=== PATIENT | female | born 2005 | race Caucasian/White ===

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

== ENCOUNTER 2025-06-24 19:04 | Emergency (ER) | payer OTHER, SELFPAY ==
--- OUTSIDE RECORDS SUMMARY | 2025-06-24 19:06 | XMS_ITS | Continuity of Care Document ---
Author Organization [facility] , [facility] Address [address] [place] [address] Assessment No assessment recorded. Plan of Treatment Reminders Order Date Submit Date Provider Last Modified By Organization Details Last Modified Time Details Appointments OB SONOGRA M 30 2024 01:00P M Ultrasound [place] 3 Not available Not available Not available OB RETURN EST 2024 01:30P M MADDISON CASTILLO NP Not available Not available Not available Lab None recorde d. Referral None recorde d. Procedures None recorde d. Surgeries None recorde d. Imaging None recorde d. Medication Orders Unisom (doxyla mine) 25 mg tablet 2024 025 [id number], [address], [place], [address], 06/18/2025 12:13:07 Vitamin B-6 25 mg tablet 2024 025 [id number], [address], [place], [address], 06/18/2025 12:13:13 Prenata l 28 mg iron-80 0 mcg tablet 2024 025 [id number], [address], [place], [address], 06/18/2025 12:12:52 Patient TargetsNo targets recorded. Patient InstructionsNo instructions recorded. Reason for Referral None Reported. Results Created Date Observation Date Name Description Value Unit Range Abnormal Flag Note LastModifiedBy Organization Detail LastModifiedTime 05/09/2005/12/2025 CULTU RE, URINE , ROUTI NE culture, urine, routine SEE NOTE abnormal CULTU RE, URINE , ROUTI NE Micro Numbe r: [id number] Test Statu s: Final Speci men Sourc e: Urine Speci men Quali ty: Adequ ate Resul t: Great er than 100,0 00 CFU/m L of Esche nikos a coli E.col i ----- ----- ----- - INT CIARAN AMOX/ CLAVU LANAT E I 16 AMP/S ULBAC HUNT I 16 CEFAZ DANIAL I 4 CEFEP DUSTIN S <=0.1 2 CEFTA ZIDIM E S <=0.5 CEFTR IAXON E S <=0.2 5 CIPRO FLOXA ELIF S 0.12 GENTA MICIN S <=1 IMIPE NEM S <=0.2 5 LEVOF LOXAC IN S 0.25 MEROP ENEM S <=0.2 5 NITRO FURAN TOIN S <=16 PIP/T AZOBA CTAM S <=4 TRIME THOPR IM/GROSS LFA S <=20 S = Susce ptibl e I = Inter media te R = Resis tant NS = Not susce ptibl e SDD = Susce ptibl e Dose Depen dent * = Not Teste d NR = Not Repor imelda NN = See Thera py Comme nts Not Available [facility] [address] [place], [address], 05/12/2025 13:20:28 05/09/2005/11/2025 VAGIN ITIS PLUS STD PANEL bacterial vaginosis BV neg negati ve normal Not Available [facility] [address] [place], [address], 05/12/2025 10:59:21 05/09/20 25 05/11/2025 VAGIN ITIS PLUS STD PANEL alan species C. spp POS negati ve abnormal Not Available [facility] [address] [place], [address], 05/12/2025 10:59:21 05/09/2005/11/2025 VAGIN ITIS PLUS STD PANEL alan glabrata C. gla neg negati ve normal Not Available [facility] [address] [place], [address], 05/12/2025 10:59:21 05/09/2005/11/2025 VAGIN ITIS PLUS STD PANEL chlamydia trachomatis CT neg negati ve normal This repor t is inten ded for use in clini ant monit oring and manag ement of [facility] nts. It is not inten ded for use in medic al-le gal appli catio n. Not Available [facility] [address] [place], [address], 05/12/2025 10:59:21 05/09/2005/11/2025 VAGIN ITIS PLUS STD PANEL neisseria gonorrhoeae GC neg negati ve normal This repor t is inten ded for use in clini ant monit oring and manag ement of [facility]. It is not inten ded for use in medic al-le gal appli catio n. Not Available [facility] [address] [place], [address], 05/12/2025 10:59:21 05/09/2005/11/2025 VAGIN ITIS PLUS STD PANEL trichomonas vaginalis TRICH POS negati ve abnormal Not Available [facility] [address] [place], [address], 05/12/2025 10:59:21 05/09/2005/09/2025 urina lysis , dipst ick Leukocytes Trace Not Available [facility] [address], [address], 05/09/2025 19:25:14 05/09/2005/09/2025 urina lysis , dipst ick Nitrite positi ve Not Available [facility] [place] [address] [place] [address], [address], 05/09/2025 19:25:14 05/09/2005/09/2025 urina lysis , dipst ick Urobilinogen .2 Not Available [address], [place], [address], 05/09/2025 19:25:14 05/09/2005/09/2025 urina lysis , dipst ick Protein Trace Not Available [address], [place], [address], 05/09/2025 19:25:14 05/09/2005/09/2025 urina lysis , dipst ick pH 6.0 Not Available [address], [place], [address], 05/09/2025 19:25:14 05/09/2005/09/2025 urina lysis , dipst ick Blood Negati ve Not Available [address], [place], [address], 05/09/2025 19:25:14 05/09/2005/09/2025 urina lysis , dipst ick Specific [place] 1.020 Not Available [facility] [address], [place], [address], 05/09/2025 19:25:14 05/09/2005/09/2025 urina lysis , dipst ick Ketone Large (80) Not Available [address], [address], 05/09/2025 19:25:14 05/09/20 25 05/09/2025 urina lysis , dipst ick Bilirubin Negati ve Not Available [address], [place], [address], 05/09/2025 19:25:14 05/09/2005/09/2025 urina lysis , dipst ick Glucose Negati ve Not Available [facility] [place] [address] [facility], [place], [address], 05/09/2025 19:25:14 05/09/2005/09/2025 urina lysis , dipst ick Appearance Turbid Not Available [facility] [place] [address] [place] [address], [place], [address], 05/09/2025 19:25:14 05/09/2005/09/2025 urina lysis , dipst ick Color Dark Yellow Not Available [facility] [address] [place] [address], [place], [address], 05/09/2025 19:25:14 05/12/2005/09/2025 US, trans vagin al No observ ation record ed. [facility] [address], [place], [address], 05/12/2025 20:14:46 Result Notes None recorded. Problems Name Problem SNOMED Code Status Onset Date Resolution Date Notes Provider Name and Address Organization Details Recorded Time test positive 824166337 Active 2024 NINA BRITO [address] [place], [address] , [facility] 14:05:27 Mixed anxiety and depressiv e disorder 415545435 Active 2024 NINA BRITO [address] [place], [address] , [facility] IV 14:05:30 Bipolar I disorder 066488176 Active 2024 NICO WEIBLEY, [address], [address] , [facility] 5 14:06:08 Mild intermitt ent asthma 666507206 Active 2024 NICO MOISE, [address], [address] , [facility] 5 14:06:08 Past history of section 252012052 Active 2024 Primary C/S Manjula Enciso, [address], [address] , [facility] 5 02:48:57 Past history of pre-eclam psia 91379489305 9100 Active 2024 Baseline preE labs normal BÁRBARA [address], [address] , [facility] 5 02:50:40 68093636 Active 2024 [address], [address] , [facility] 5 02:45:34 Past history of section 991728880 Active 2024 Primary C/S Manjula Enciso, NATE [address] [place] [address], [address] , [facility] 5 02:48:57 Obese class II 49698598593 4105 Active 2024 [address], [address] , [employer] 5 02:49:11 Past history of pre-eclam psia 08460937189 9100 Active 2024 Baseline preE labs normal Manjula Enciso CNM [address] [place] [address], [address] , [employer] 5 02:50:40 Past history of premature delivery 028956089 Active 2024 34 wks Primary C/S Manjual Enciso, CNM [address] [facility], [place], [address] , [facility] [employer] IV 02:49:55 Problem Notes None recorded. Procedures Surgical History Date Name Laterality Status Provider Name and Address Organization Details Recorded Time section completed Yessenia Barros [facility] [employer] [facility] 03/14/2025 13:12:04 Imaging Results None recorded. Procedure Notes None recorded. Medical Equipment None Reported. Allergies Allergen ID Allergen Name Allergen Category Reaction Reaction Severity Criticality Documentation Date Start Date Code Code System Note Provider Name and Address Organization Details Recorded Time 908348 Product containin g penicilli n (product) medicatio n rash Not available low 02/20/20252015 89776 8001 SNOMED Jaycee Sprague cydney, [facility] [employer] [facility] 15:06:15 Medications Name Sig Start Date Stop Date Status Note LastModified by Organization Details LastModified Time terconazole 0.4 % vaginal cream Insert 1 applicato rful every day by vaginal route for 7 days. 2024 active Not Available Not Available Not Avai lable Vitamin B-6 25 mg tablet Take 1 tablet 3 times a day by oral route for 30 days. 06/18 completed Not Available Not Available Not Available metronidazo le 0.75 % (37.5 mg/5 gram) vaginal gel Insert 1 applicato rful every day by vaginal route for 5 days. 05/21 completed Not Available Not Available Not Available metronidazo le 500 mg tablet Take 1 tablet twice a day by oral route with meal(s) for 7 days. 2024 active Not Available Not Available Not Avai lable cephalexin 500 mg capsule TAKE 1 CAPSULE BY MOUTH 4 TIMES DAILY FOR 14 DAYS. 04/17 completed Not Available Not Available Not Available ondansetron 4 mg disintegrat ing tablet DISSOLVE 1 TABLET UNDER THE TONGUE EVERY 6-8 HOURS NEEDED FOR 15 DAYS 05/15 completed Not Available Not Available Not Available Unisom (doxylamine ) 25 mg tablet Take 1 tablet every day by oral route at bedtime for 30 days. 06/18 completed Not Available Not Available Not Available doxycycline hyclate 100 mg tablet TAKE 1 TABLET BY MOUTH TWICE A DAY 02/20 completed Not Available Not Available Not Available metoclopram geetha 10 mg tablet TAKE 1 TABLET 4 TIMES A DAY BY MOUTH BEFORE MEAL(S) FOR 15 DAYS. 06/18 completed Not Available Not Available Not Available progesteron e micronized 100 mg capsule TAKE 1 CAPSULE BY MOUTH EVERY DAY AT BEDTIME FOR 30 DAYS 04/17 completed Not Available Not Available Not Available escitalopra m 10 mg tablet TAKE 1 TABLET BY MOUTH EVERY DAY DIRECTED 02/20 completed Not Available Not Available Not Available escitalopra m 5 mg tablet TAKE 1 TABLET BY MOUTH EVERY DAY DIRECTED FOR 14 DAYS 02/20 completed Not Available Not Available Not Available vitamn-iron carb-folic acid-docusa te 95 mg-1 mg-50 mg capsule Take by oral route. 06/18 completed Not Available Not Available Not Available nitrofurant oin monohydrate /macrocryst als 100 mg capsule Take 1 capsule every 12 hours by oral route for 5 days. 2024 active Not Available Not Available Not Avai lable chlorhexidi ne gluconate 0.12 % mouthwash SWISH 15 ML FOR 30 SECONDS THEN SPIT. USE TWICE DAILY (MORNING AND EVENING) AFTER BRUSHING TEETH 02/20 completed Not Available Not Available Not Available progesteron e 04/17 completed Not Available Not Available Not Available 28 mg iron-800 mcg tablet Take 1 tablet every day by oral route for 90 days. 06/18 completed Not Available Not Available Not Available Vitals Date Recorded Body height Body mass index (BMI) [Percentile] Per age and sex Body mass index (BMI) Body weight Systolic And Diastolic Provider Name and Address Organization Details Last Updated DateTime 175.26 cm 96.94 % 35.6 kg/m2 596884. 76 g 128/74 mm[Hg] [facility] 17:13:45 Social History Question Answer Notes LastModified by Organizat ion Details LastModified Time Tobacco Smoking Status Never Smoker Jaycee Sprague null, [facility] 02/20/2025 15:09:05 If You Are , What Was Your Level Of Alcohol Consumption Prior To ? None Information not available 03/14/2025 Are You Blind Or Do You Have Difficulty Seeing? No [email or web address] Information not available 02/20/2025 Are You Deaf Or Do You Have Serious Difficulty Hearing? No [email or web address] Information not available 02/20/2025 What Type Of Diet Are You Following? REGULAR [email or web address] Information not available 03/14/2025 Which Illicit Or Recreational Drugs Have You Used? [email or web address] Information not available 05/15/2025 How Many Children Do You Have? 1 [email or web address] Information not available 02/20/2025 What Is Your Relationship Status? Domestic Partner [email or web address] Information not available 02/20/2025 Are You Sexually Active? Yes [email or web address] Information not available 02/20/2025 Have You Used IV Drugs? No Information not available 05/15/2025 Sex: Unknown Functional Status Question Answer Note LastModified by Organizat ion Details LastModified Time Do you use any illicit or recreational drugs? Yes Information not available 05/15/2025 Do you or have you ever used any other forms of tobacco or nicotine? No [email or web address] Information not available 02/20/2025 What is your level of alcohol consumption? None Information not available 02/20/2025 Are you currently employed? No Information not available 05/15/2025 Mental Status None recorded. Family History Nothing Reported. Medical History Condition Response High Blood Pressure Y Depression Y Anxiety Disorder Y Asthma Y Bipolar Disorder Y Gynecological History Statement/Question Response Flow Moderate Date of last HPV Date of LMP 12/24/2024 HPV Vaccine N Duration of Flow (days) 2 Most Recent Mammogram Current Control Method Age at Menarche 9 Date of Last Colonoscopy Most Recent Bone Density Date of Last Pap Smear Obstetrics History GPAL:G 4 P 0 1 2 1 Type Value Spontaneous 2 Premature 1 Living 1 Total 4 Past Encounters Encounter ID Performer Location Encounter Start Date Encounter Closed Date Diagnosis/Indication Diagnosis SNOMED-CT Code Diagnosis ICD10 Code Diagnosis IMO Codes Diagnosis Note [id number] Manjula Enciso CNM [facility] [address] [place] [address] 04/17/2025 16:42:05 04/17/2025 19:51:20 test positive 705530046 Z32.01 217306 LMP 12/24/2024Pt was seen about 3 wks ago in the ED for pelvic & abdominal pain. IUP was identified at that time.She is here for dating US and labsEDD based on US. 10 wks - 11/10/2025N OB education reviewedSA B precaution s discussedF /u in 4 wks [id number] Manjula Camille BocanegraFernie, [facility] [address] [place] [address] 05/09/2025 18:59:10 05/09/2025 20:02:04 Gestation period, 13 weeks 61795913 Z3A.13 9992713 Advised pt to f/u immediatel y if temp>101.; abdominal pain, vaginal bleeding greater than 1 pad/hr for greater than 2 hours; vaginal bleeding with or without cramping; bleeding w/clots; cramping like a period. Dysuria 38550976 R30.0 64548 Pt reports dysuria, frequency. U dip positive nitrites - Rx for nitrofuran toin sent.[facility] POC pending culture results. Acute vaginitis 74264347 N76.0 - suspected BV. - large amounts of malodorous discharge present - Metrogel rx sent - Vulvar hygiene reviewed - Additional POC pending results - Pain in female pelvis 42 1663446 O26.899 R10.20 202140 No abnormalit ies seen on US. Discussed findings w/pt.Pain most consistent with RLP and or UTI symptoms Nausea and vomiting in 8531439115 O21.9 753285 Nausea of - advised patient to keep cracker at the bedside to eat before getting out of bed in the morning, eat smaller more frequent meals during the day, and avoid mixing solids and liquids in the same meal. Eat protein snack at bedtime. Vitamin B6 4 x daily and can take 1/2 tablet of unisom during the day w/VitB6 and 1 tablet unisom w/Vit B6 at nightRx for antiemetic sent.Infor med pt if no improvemen t in N/V can come to [facility] for IV hydration. [id number] ALVIN OLIVEIRA CNM [facility] [address] [place] [address] 05/15/2025 17:00:15 05/16/2025 13:02:28 Gestation period, 14 weeks 92335898 Z3A.14 9792214 Pt is here for a CHAD appointmen t. She is taking vitamins. She has no complaints or questions. Has not felt movement yet. Denies vaginal bleeding, abdominal cramps, N/V, contractio ns, or LOF. Denies headache, vision changes, swelling of hands or face, and epigastric pain. Discussed PTL and precaution s given. There are no identifiab le risk factors for pre-term labor. Patient was counseled on purpose, process and potential outcomes of NIPT screening. We discussed benefits, limitation s and accuracy of screenings . Alternativ es including, no testing, were reviewed. Patient was given the opportunit y to ask questions, which were addressed thoroughly . After confirming understand ing, patient provided verbal consent for NIPT screening. Hyperemesi s gravidarum 79702931 O21.0 Health Concerns Section Related Observation LastModified by Organization Detai ls LastModified Time None Recorded Concern Status LastModified by Organization Details LastModified Time None Recorded Payers Encounter Date Sequence Insurance Name Policy Number Policy Ambriz Covered Member ID Ambriz Member ID Guarantor Name 05/15/2025 1 [facility] [id number] Richardson Vargas [id number] [facility] 05/15/2025 2 [place] Serenity Mal[place]k [id number] [facility] Notes Date Note Type Note Provider Name and Address Organization Details Recorded Time 05/15/2025 text/html Patient is here today for a routine OB visit. She is currently at 14.3 weeks gestation. vitamins: yes She has not felt movement.She denies any complaints of the presence of vaginal bleed, leaking fluid, abdominal cramps, nausea, vomiting, headache or visual disturbances. Patients states was prescribed prenatals but she was given the Zofran at the pharmacy. She would like some prenatals sent in. No other concerns. ALVIN OLIVEIRA CNM [address] [place], [address], [facility] [employer] 05/15/2025 17:33:35 OBGyn Episode Ob Episode Information Episode Created Date Number of Fetuses Patient Bloodtype Patient rh Status Prepregnancy Weight lbs Domestic Partner Domestic Partner Phone Father Name Pot Holder Binder Status 04/23/20 25 1 A Positive OPEN Fetus Data First Name Last Name Admitted to NICU Weight (g) Sex Living Outcome Pediatric Complications Fetus ID Race Codes Race Delivery Type [id number] Problems Problem Notes Problem Name Start Date End Date Resolution Snomed Code Not e Obese class II 04/23/2025 19138949045062 5 Past history of pre-eclampsia 04/23/2025 297727129143568 Baseline pr eE labs normal Past history of premature delivery 04/23/2025 021587019 34 wks Primary C/S Past history of section 04/23/2025 [id number] Primary C/S Marcellus Calculation Initial Marcellus Date Initial Exam Date Initial Exam Provider Initial Ultrasound Date Last Menstrual Period Date Ultra Sound Weeks Gestation 04/23/2025 04/17/2025 12/24/2024 10 Eighteen To Twenty Week Marcellus Update Ultra Sound Date Fundal Height At Umbil Quickening Date Ultra Sound Latest Weeks Gestation Final Marcellus Confirmed By Final Marcellus Confirmed Date Final Marcellus Date Ultra Sound Latest Days Gestation 0 [email or web address] 04/23/2025 11/11/19 26 0 Pre-radha Flowsheet Flowsheet Date 05/09/2025 Jarvis Score Blood Edema Fundus Height Fundus Units Glucose Ketones Leukocytes Nitrite Labor Signs Protein Cervic Dilation Cervic Effacement Cervic Station Type Weight in lbs Pre/Post Dialysis Refused With clothes 241.399764041209 BP Diastolic BP Location Tested BP Systolic BP Type 70 120 sitting Fetus Heart Rate Present A 151 Fetus Movement Comments UC visit - see A/P Flowsheet Date 05/15/2025 Jarvis Score Blood Edema Fundus Height Fundus Units Glucose Ketones Leukocytes Nitrite Labor Signs Protein Cervic Dilation Cervic Effacement Cervic Station none neg Type Weight in lbs Pre/Post Dialysis Refused Weight 241.270878285137 BP Diastolic BP Location Tested BP Systolic BP Type 74 128 sitting Fetus Heart Rate Present A 148 Fetus Movement Comments No ob concernsPt has continu ed nausea, not taking zofran r/t risk of increased risk for clubbed feet (her last baby had clubbed feet), script sent for VitB6 and Unisom. Script sent for PNVNIPT collected todayRTC in 4 weeks Flowsheet Date 06/18/2025 Jarvis Score Blood Edema Fundus Height Fundus Units Glucose Ketones Leukocytes Nitrite Labor Signs Protein Cervic Dilation Cervic Effacement Cervic Station Type Weight in lbs Pre/Post Dialysis Refused With clothes 235.920064386475 BP Diastolic BP Location Tested BP Systolic BP Type 70 120 sitting Fetus Heart Rate Present A 163 Fetus Movement Comments reports mild suprapubic cram ping. Udip +leuks, UCx sent. [place] for trich today. F/u next week for anatomy scan Menstrual History Last Menstrual Date Menses Monthly On Bcp Conception Prior Menses Frequency Hcg Plus Date Menarche Onset Age 0612/24/2024 Delivery Information Delivery Date Delivery Type Labor Anesthesia Weeks Gestation Incision Type Labor Labor Length Hrs Delivered By Post Complications Tubal Sterilization Discharge Date Comments Discharge Information Feeding Method Contraceptive Method Maternal HG B and HCT Levels
--- OUTSIDE RECORDS SUMMARY | 2025-06-24 19:06 | XMS_ITS | Continuity of Care Document ---
Author Organization [facility] Address [address] [place] [address] Assessment No assessment recorded. Plan of Treatment Reminders Order Date Submit Date Provider Last Modified By Organization Details Last Modified Time Details Appointments OB SONOG FAIZA 30 2024 01:00P [facility] 3 Not available Not available Not available OB RETUR N EST 2024 01:30P M MADDISON CSATILLO NP Not available Not available Not available Lab hemog lobin A1c, QN, blood 2024 025 [employer], [address] [place], [address], 04/19/2025 11:41:20 abo group + rh type, blood 2024 025 [employer] [facility], [address] [facility], [place], [address], 04/26/2025 11:26:05 CBC w/ auto diff 2024 025 [facility], [address] [place], [address], 04/19/2025 12:17:35 CT + NG DNA, PCR, unspe cifie d speci men 2024 025 [employer], [address] [place], [address], 04/19/2025 19:58:29 drug of abuse panel , urine 2024 025 [employer], [address] [place], [address], 04/19/2025 11:05:22 obste tric scree n + HIV, serum or blood 2024 025 [facility], [address] [place] [address], [address], 04/19/2025 12:01:59 measl es igg Ab, serum 2024 025 [facility], [address] [place], [address], 04/26/2025 11:26:04 cultu re, urine 2024 025 [facility], [address] [place], [address], 04/26/2025 11:26:05 varic marlene- gregorioste r igg Ab scree n, serum 2024 025 [facility], [address] [facility], [place], [address], 04/26/2025 11:26:03 hemog lobaga valle y armando chaudhary, blood 2024 025 [facility], [address] [facility], [place], [address], 04/26/2025 11:26:03 antib meredith scree n, serum or plasm a 2024 025 [facility], [address] [place], [address], 04/26/2025 11:26:04 CMP, serum or plasm a 2024 [address] [email or web address], [address] [place] [address], [address], 04/17/2025 19:12:05 prote in:cr eatin ine ratio , urine 2024 025 TAC[facility], [address] [place], [address], 04/19/2025 11:00:10 Referral None recor ded. Procedures None recor ded. Surgeries None recor ded. Imaging US, trans vagin al 2024 025 [facility] Not available 04/18/2025 14:13:14 Medication Orders None recor ded. Patient TargetsNo targets recorded. Patient InstructionsNo instructions recorded. Reason for Referral None Reported. Results Created Date Observation Date Name Description Value Unit Range Abnormal Flag Note LastModifiedBy Organization Detail LastModifiedTime 04/19/2004/19/2025 PROT/ CREAT - U RANDO M protein, urine 14.5 mg/dL <11.9 high Not Available [facility] [address] [place], [address], 04/19/2025 11:00:10 04/19/2004/19/2025 PROT/ CREAT - U RANDO M creatinine, urine 176 mg/dL 20 - 275 normal Not Available [facility] [address] [place], [address], 04/19/2025 11:00:10 04/19/2004/19/2025 PROT/ CREAT - U RANDO M protein/crea tinine ratio, random urine 0.082 mg/mg _crea t 0.024 - 0.184 normal Not Available [facility] [address] [place], [address], 04/19/2025 11:00:10 04/17/2004/19/2025 DRUG ABUSE PANEL 7 W/CON FIRM amphetamines Negati ve negati ve normal Not Available [facility] [address] [place], [address], 04/19/2025 11:05:22 04/17/2004/19/2025 DRUG ABUSE PANEL 7 W/CON FIRM barbiturates Negati ve negati ve normal Not Available [facility] [address] [place], [address], 04/19/2025 11:05:22 04/17/20 25 04/19/2025 DRUG ABUSE PANEL 7 W/CON FIRM benzodiazepi stella Negati ve negati ve normal Not Available [facility] [address] [place], [address], 04/19/2025 11:05:22 04/17/20 25 04/19/2025 DRUG ABUSE PANEL 7 W/CON FIRM cocaine metabolites Negati ve negati ve normal Not Available [facility] [address] [place], [address], 04/19/2025 11:05:22 04/17/20 25 04/19/2025 DRUG ABUSE PANEL 7 W/CON FIRM cannabinoids Presum ptive Positi ve negati ve abnormal Not Available [facility] [address] [place], [address], 04/19/2025 11:05:22 04/17/20 25 04/19/2025 DRUG ABUSE PANEL 7 W/CON FIRM methadone Negati ve negati ve normal Not Available [facility] [address] [place], [address], 04/19/2025 11:05:22 04/17/20 25 04/19/2025 DRUG ABUSE PANEL 7 W/CON FIRM opiates Negati ve negati ve normal Not Available [facility] [address] [place], [address], 04/19/2025 11:05:22 04/17/20 25 04/19/2025 DRUG ABUSE PANEL 7 W/CON FIRM creatinine, urine 174 mg/dL 20 - 275 normal Not Available [facility] [address] [place], [address], 04/19/2025 11:05:22 04/17/20 25 04/19/2025 HEMOG LOBIN A1C hemoglobin A1C 5.1 % <5.7 normal The refer ence range for HbA1c is indic ated in the table below . Sugge sted Diagn osis =6.5% Consi stent with diabe jarvis 5.7 6.4% Consi stent with incre ased risk for diabe jarvis (pred iabet ic) <5.7% Consi stent with the absen ce of diabe jarvis Not Available [address], [address], 04/19/2025 11:41:20 04/17/20 25 04/19/2025 OB PANEL - STD BLOOD WORK hep BS Ag Non-Re active non-re active normal Not Available [address], [address], 04/19/2025 12:01:59 04/17/20 25 04/19/2025 OB PANEL - STD BLOOD WORK hep C Ab Non-Re active non-re active normal Not Available [address], [address], 04/19/2025 12:01:59 04/17/20 25 04/19/2025 OB PANEL - STD BLOOD WORK HIV 1/2 Ag/Ab Non-Re active non-re active normal Not Available [address], [address], 04/19/2025 12:01:59 04/17/20 25 04/19/2025 OB PANEL - STD BLOOD WORK syphilis Ab Non-Re active non-re active normal Not Available [address], [address], 04/19/2025 12:01:59 04/17/20 25 04/19/2025 OB PANEL - STD BLOOD WORK rubella Ab IgG 61.8 IU/mL normal INTER PRETI VE INFOR MATIO N: Rubel la Antib meredith, IgG. < 5.0 IU/mL ..... ..... . Not consi stent with immun ity 5.0 - 9.9 IU/mL ..... . Equiv ocal: Indet ermin ate-R epeat testi ng in 10-14 days may be helpf ul. > or = 10.0 IU/mL ... Consi stent with immun ity The prese nce of Rubel la IgG antib meredith sugge st respo nse to immun izati on or prior /curr ent expos ure to the Rubel la virus . Not Available [address], [address], 04/19/2025 12:01:59 04/17/2004/19/2025 CBC (INCL UDES DIFF/ PLT) WBC 12.0 thous and/u L 4.0 - 9.8 high Not Available [address], [address], 04/19/2025 12:17:34 04/17/2004/19/2025 CBC (INCL UDES DIFF/ PLT) RBC 4.7 mamadou on/uL 3.9 - 4.9 normal Not Available [address], [address], 04/19/2025 12:17:34 04/17/20 25 04/19/2025 CBC (INCL UDES DIFF/ PLT) hemoglobin 14.8 g/dL 11.8 - 14.8 normal Not Available [address], [address], 04/19/2025 12:17:34 04/17/20 25 04/19/2025 CBC (INCL UDES DIFF/ PLT) hematocrit 45.3 % 35.5 - 44.0 high Not Available [address], [address], 04/19/2025 12:17:34 04/17/2004/19/2025 CBC (INCL UDES DIFF/ PLT) MCV 96.0 fL 82.0 - 99.0 normal Not Available [address], [address], 04/19/2025 12:17:34 04/17/20 25 04/19/2025 CBC (INCL UDES DIFF/ PLT) MCH 31.4 pg 27.2 - 32.6 normal Not Available [address], [address], 04/19/2025 12:17:34 04/17/20 25 04/19/2025 CBC (INCL UDES DIFF/ PLT) MCHC 32.7 g/dL 31.5 - 35.5 normal Not Available [address], [address], 04/19/2025 12:17:34 04/17/20 25 04/19/2025 CBC (INCL UDES DIFF/ PLT) RDW-CV 12.6 % 11.5 - 14.5 normal Not Available [address], [address], 04/19/2025 12:17:34 04/17/20 25 04/19/2025 CBC (INCL UDES DIFF/ PLT) platelet 305 thous and/u L 140 - 350 normal Not Available [address], [address], 04/19/2025 12:17:34 04/17/20 25 04/19/2025 CBC (INCL UDES DIFF/ PLT) MPV 12.5 fL 9.3 - 12.4 high Not Available [address], [address], 04/19/2025 12:17:34 04/17/20 25 04/19/2025 CBC (INCL UDES DIFF/ PLT) absolute neutrophil 8.79 thous and/u L 1.90 - 7.00 high Not Available [address], [address], 04/19/2025 12:17:34 04/17/20 25 04/19/2025 CBC (INCL UDES DIFF/ PLT) absolute lymphocyte 2.31 thous and/u L 0.70 - 4.50 normal Not Available [address], [address], 04/19/2025 12:17:34 04/17/20 25 04/19/2025 CBC (INCL UDES DIFF/ PLT) absolute monocyte 0.70 thous and/u L 0.10 - 1.30 normal Not Available [address], [address], 04/19/2025 12:17:34 04/17/20 25 04/19/2025 CBC (INCL UDES DIFF/ PLT) absolute eosinophil 0.03 thous and/u L <0.70 normal Not Available [address], [address], 04/19/2025 12:17:34 04/17/20 25 04/19/2025 CBC (INCL UDES DIFF/ PLT) absolute basophil 0.15 thous and/u L <0.20 normal Not Available [address], [address], 04/19/2025 12:17:34 04/17/20 25 04/19/2025 CBC (INCL UDES DIFF/ PLT) absolute immature granulocyte 0.02 thous and/u L <0.03 normal Not Available [address], [address], 04/19/2025 12:17:34 04/17/20 25 04/19/2025 CT/NG chlamydia trachomatis CT neg negati ve normal This repor t is inten ded for us in clini ant monit oring and manag ement of patie nts. It is not inten ded for use in medic al-le gal appli catio n. Not Available [address], [address], 04/19/2025 19:58:29 04/17/20 25 04/19/2025 CT/NG neisseria gonorrhoeae GC neg negati ve normal This repor t is inten ded for us in clini ant monit oring and manag ement of patie nts. It is not inten ded for use in medic al-le gal appli catio n. Not Available [address], [address], 04/19/2025 19:58:29 04/17/20 04/26/2025 VARIC MARLENE ZOSTE R VIRUS ANTIB MEREDITH (IGG) varicella zoster virus antibody (IgG) 1.17 S/co normal Signa l to Cut-o ff S/CO Inter preta tion ----- ---- ----- ----- ----- ----- -- <1.00 Negat manolo - Antib meredith not detec imelda > or = 1.00 Posit manolo - Antib meredith detec imelda A posit manolo resul t indic ates that the patie nt has antib meredith to VZV but does not diffe renti ate betwe en an activ e or past infec tion. The clini ant diagn osis must be inter prete d in conju nctio n with the clini ant signs and sympt oms of the patie nt. This assay relia steph measu res immun ity due to previ ous infec tion but may not be sensi tive enoug h to detec t antib odies induc ed by vacci natio n. Thus, a negat manolo resul t in a vacci nated indiv idual does not neces saril y indic ate susce ptibi lity to VZV infec tion. A more sensi tive test for vacci natio n-ind uced immun ity is Varic marlene Zoste r Virus Antib meredith Immun ity Scree n, ACIF. Not Available [address], [address], 04/26/2025 11:26:03 04/17/20 25 04/26/2025 HEMOG LOBIN OPATH Y EVALU ATION red blood cell count 4.70 mamadou on/uL 3.80-5 .10 Not Available [facility] [address] [address] [place], [address], 04/26/2025 11:26:03 04/17/20 25 04/26/2025 HEMOG LOBIN OPATH Y EVALU ATION hemoglobin 14.6 g/dL 11.7-1 5.5 Not Available [facility] [address] [place], [address], 04/26/2025 11:26:03 04/17/20 25 04/26/2025 HEMOG LOBIN OPATH Y EVALU ATION hematocrit 46.5 % 35.0-4 5.0 high Not Available [address] [address] [place], [address], 04/26/2025 11:26:03 04/17/20 25 04/26/2025 HEMOG LOBIN OPATH Y EVALU ATION MCV 98.9 fL 80.0-1 00.0 Not Available [address] [address] [place], [address], 04/26/2025 11:26:03 04/17/20 25 04/26/2025 HEMOG LOBIN OPATH Y EVALU ATION MCH 31.1 pg 27.0-3 3.0 Not Available [address] [address] [place], [address], 04/26/2025 11:26:03 04/17/20 25 04/26/2025 HEMOG LOBIN OPATH Y EVALU ATION RDW 13.4 % 11.0-1 5.0 Not Available [address] [address] [place], [address], 04/26/2025 11:26:03 04/17/20 25 04/26/2025 HEMOG LOBIN OPATH Y EVALU ATION hemoglobin A 97.4 % >96.0 Not Available [address] [address] [place], [address], 04/26/2025 11:26:03 04/17/20 25 04/26/2025 HEMOG LOBIN OPATH Y EVALU ATION hemoglobin F <1.0 % <2.0 Not Available [address] [address] [place], [address], 04/26/2025 11:26:03 04/17/20 25 04/26/2025 HEMOG LOBIN OPATH Y EVALU ATION hemoglobin A2 (quant) 2.6 % 2.0-3. 2 Not Available [facility] [address] [address] [place], [address], 04/26/2025 11:26:03 04/17/20 25 04/26/2025 HEMOG LOBIN OPATH Y EVALU ATION interpretati on Angeli l pheno type. Angeli l hemog lobin distr ibuti on, no HgS, HgC or other abnor mal hemog lobin obser ny. Not Available [facility] [address] [address], [place], [address], 04/26/2025 11:26:03 04/17/2004/26/2025 MEASL ES AB (IGG) , IMMUN E STATU S measles Ab (IgG), immune status >300.0 0 AU/mL normal AU/mL Inter preta tion ----- ----- ----- ---- <13.5 0 Not consi stent with immun ity 13.50 -16.4 9 Equiv ocal >16.4 9 Consi stent with immun ity The prese nce of measl es IgG sugge sts immun izati on or past or curre nt infec tion with measl es virus . For addit ional infor garcia kumar e refer to http: //[facility] redd crouch.Que stDia gnost ics.c om/fa q/FAQ 162 (This link is being provi ded for infor didier ware/ educa stacy l purpo ses only. ) Not Available [facility] [address] [address], [place], [address], 04/26/2025 11:26:04 04/17/2004/26/2025 ANTIB MEREDITH SCREE N, RBC W/REF L ID, TITER AND AG antibody screen, RBC w/refl id, titer and Ag NO ANTIBO DIES DETECT ED normal Refer ence range No antib odies detec imelda This assay is a scree ysabel test for the detec tion of red blood cell antib odies . The test is not to be used for pretr ansfu yamel scree ysabel or for the medic al manag ement of an alloi mmuni zed pregn carlos. Not Available [address] [address] [place], [address], 04/26/2025 11:26:04 04/17/20 25 04/26/2025 ABO GROUP AND RH TYPE ABO group A Not Available [facility] [address] [address] [place], [address], 04/26/2025 11:26:05 04/17/20 25 04/26/2025 ABO GROUP AND RH TYPE Rh type RH(D) POSITI VE For addit ional infor garcia kumar refer to http: //[facility] redd crouch.Que stDia gnost ics.c om/fa q/FAQ 111 (This link is being provi ded for infor didier ware/ educjudi huerta purpo ses only. ) Not Available [address] [address] [place], [address], 04/26/2025 11:26:05 04/17/20 25 04/26/2025 CULTU RE, URINE , ROUTI NE culture, urine, routine SEE NOTE CULTU RE, URINE , ROUTI NE Micro Numbe r: [id number] Test Statu s: Final Speci men Sourc e: Urine Speci men Quali ty: Adequ ate Resul t: Mixed genit al paco isola imelda. These super ficia l bacte mary are not indic ative of a urina ry tract infec tion. No furth er organ ism ident ifica tion is warra nted on this speci men. If clini yoon indic ated, recol lect clean -catc h, mid-s tream urine and trans marvin immed iatel y to Urine Cultu re Trans port Tube. Not Available [address] [address] [place], [address], 04/26/2025 11:26:05 04/20/20 25 04/21/2025 COMPR EHENS MANOLO METAB OLIC PANEL sodium 139 mmol/ L 136 - 145 normal Not Available [address], [address], 04/21/2025 10:59:31 04/20/2004/21/2025 COMPR EHENS MANOLO METAB OLIC PANEL potassium 3.9 mmol/ L 3.5 - 5.1 normal Not Available [address], [address], 04/21/2025 10:59:31 04/20/2004/21/2025 COMPR EHENS MANOLO METAB OLIC PANEL chloride 100 mmol/ L 98 - 107 normal Not Available [address], [address], 04/21/2025 10:59:31 04/20/2004/21/2025 COMPR EHENS MANOLO METAB OLIC PANEL glucose 85 mg/dL 74 - 106 normal Not Available [address], [address], 04/21/2025 10:59:31 04/20/2004/21/2025 COMPR EHENS MANOLO METAB OLIC PANEL carbon dioxide 25 mmol/ L 20 - 32 normal Not Available [address], [address], 04/21/2025 10:59:31 04/20/2004/21/2025 COMPR EHENS MANOLO METAB OLIC PANEL calcium 9.1 mg/dL 8.5 - 10.1 normal Not Available [address], [address], 04/21/2025 10:59:31 04/20/2004/21/2025 COMPR EHENS MANOLO METAB OLIC PANEL creatinine 0.51 mg/dL 0.60 - 1.00 low Not Available [address], [address], 04/21/2025 10:59:31 04/20/2004/21/2025 COMPR EHENS MANOLO METAB OLIC PANEL eGFR 138 mL/mi n/1.7 3m2 >60 normal The eGFR is based on the CKD-E PI 2020 equat jayjay. To calcu late the new eGFR from a previ ous Creat inine or Cysta harry C resul t, go to https ://ana helms.jose ramon rg/pr ofdionisio roal s/kdo qi/gf r_cal culat or Not Available [address], [address], 04/21/2025 10:59:31 04/20/20 25 04/21/2025 COMPR EHENS MANOLO METAB OLIC PANEL AST 14 U/L 15 - 37 low Not Available [address], [address], 04/21/2025 10:59:31 04/20/20 25 04/21/2025 COMPR EHENS MANOLO METAB OLIC PANEL ALT 27 U/L 14 - 59 normal Not Available [address], [address], 04/21/2025 10:59:31 04/20/20 25 04/21/2025 COMPR EHENS MANOLO METAB OLIC PANEL alk phos 62 U/L 46 - 116 normal Not Available [address], [address], 04/21/2025 10:59:31 04/20/20 25 04/21/2025 COMPR EHENS MANOLO METAB OLIC PANEL albumin 4.0 g/dL 3.4 - 5.0 normal Not Available [address], [address], 04/21/2025 10:59:31 04/20/2004/21/2025 COMPR EHENS MANOLO METAB OLIC PANEL protein, total 7.3 g/dL 6.4 - 8.2 normal Not Available [address], [address], 04/21/2025 10:59:31 04/20/20 04/21/2025 COMPR EHENS MANOLO METAB OLIC PANEL bilirubin, total 0.7 mg/dL 0.2 - 1.0 normal Not Available [facility] [address] [place], [address], 04/21/2025 10:59:31 04/20/20 25 04/21/2025 COMPR EHENS MANOLO METAB OLIC PANEL urea nitrogen (BUN) 6 mg/dL 7 - 18 low Not Available [facility] [address] [place], [address], 04/21/2025 10:59:31 05/12/2005/09/2025 US, trans vagin al No observ ation record ed. [email or web address] [place] [address], [place], [address], 05/12/2025 20:14:46 Result Notes None recorded. Problems Name Problem SNOMED Code Status Onset Date Resolution Date Notes Provider Name and Address Organization Details Recorded Time test positive 851129643 Active 2024 NINA BRITO [address] [place], [address] , [facility] 14:05:27 Mixed anxiety and depressiv e disorder 566923060 Active 2024 NINA BRITO [address] [place], [address] , [facility] 5 14:05:30 Bipolar I disorder 346470039 Active 2024 NINA BRITO [address] [place], [address] , [facility] 5 14:06:08 Mild intermitt ent asthma 072071649 Active 2024 NINA BRITO [address] [place], [address] , [facility] 5 14:06:08 Past history of section 065795337 Active 2024 Primary C/S Manjula Camille Enciso, NATE [address] [place], [address] , [facility] 5 02:48:57 Past history of pre-eclam psia 50194173286 9100 Active 2024 Baseline preE labs normal Manjula Camille Enciso NATE [address] [place], [address] , [email or web address] 5 02:50:40 84668516 Active [address], [address] , [facility] 5 02:45:34 Past history of section 249537733 Active 2024 Primary C/S Manjula Enciso CNM [address] [place] [address], [address] , [facility] 5 02:48:57 Obese class II 26788683551 4105 Active 2024 Manjula Enciso CNM [address] [place] [address], [address] , [facility] 5 02:49:11 Past history of pre-eclam psia 68603650668 9100 Active 2024 Baseline preE labs normal Manjulakelley Enciso CNM [address] [place] [address], [address] , [facility] 5 02:50:40 Past history of premature delivery 090297449 Active 2024 34 wks Primary C/S Manjula Enciso NATE [address] [place] [address], [address] , [facility] 5 02:49:55 Problem Notes None recorded. Procedures Surgical History Date Name Laterality Status Provider Name and Address Organization Details Recorded Time section completed Yessenia Barros PA [email or web address] 03/14/2025 13:12:04 Imaging Results None recorded. Procedure Notes None recorded. Medical Equipment None Reported. Allergies Allergen ID Allergen Name Allergen Category Reaction Reaction Severity Criticality Documentation Date Start Date Code Code System Note Provider Name and Address Organization Details Recorded Time 304560 Product containin g penicilli n (product) medicatio n rash Not available low 02/20/20252015 61102 8001 SNOMED Jaycee [facility] 15:06:15 Medications Name Sig Start Date Stop [...] Recorded Body height Body mass index (BMI) Body mass index (BMI) [Percentile] Per age and sex Body weight Systolic And Diastolic Provider Name and Address Organization Details Last Updated DateTime 04/17/2025 175.26 cm 35.9 kg/m2 97.11 % 183055. 66 g 120/60 mm[Hg] Kerry Green [facility] 17:24:00 Social History Question Answer Notes LastModified by Organizat ion Details LastModified Time Tobacco Smoking Status Never Smoker Jaycee lamas, [facility] 02/20/2025 15:09:05 If You Are , What Was Your Level Of Alcohol Consumption Prior To ? None [email or web address] Information not available 03/14/2025 Are You Blind Or Do You Have Difficulty Seeing? No Information not available 02/20/2025 Are You Deaf Or Do You Have Serious Difficulty Hearing? No Information not available 02/20/2025 What Type Of Diet Are You Following? REGULAR [email or web address] Information not available 03/14/2025 Which Illicit Or Recreational Drugs Have You Used? Katia [email or web address] Information not available 05/15/2025 How Many Children Do You Have? 1 [email or web address] Information not available 02/20/2025 What Is Your Relationship Status? Domestic Partner Information not available 02/20/2025 Are You Sexually Active? Yes [email or web address] Information not available 02/20/2025 Have You Used IV Drugs? No [email or web address] Information not available 05/15/2025 Sex: Unknown Functional Status Question Answer Note LastModified by Organizat ion Details LastModified Time Do you use any illicit or recreational drugs? Yes [email or web address] Information not available 05/15/2025 Do you or have you ever used any other forms of tobacco or nicotine? No [email or web address] Information not available 02/20/2025 What is your level of alcohol consumption? None [email or web address] Information not available 02/20/2025 Are you currently employed? No [email or web address] Information not available 05/15/2025 Mental Status None recorded. Family History Nothing Reported. Medical History Condition Response Anxiety Disorder Y High Blood Pressure Y Bipolar Disorder Y Depression Y Asthma Y Gynecological History Statement/Question Response Flow Moderate [...] ICD10 Code Diagnosis IMO Codes Diagnosis Note [id number] Manjula Enciso CNM [facility] [address] [place] [address] 04/17/2025 16:42:05 04/17/2025 19:51:20 test positive 708917571 Z32.01 563960 LMP 12/24/2024Pt was seen about 3 wks ago in the ED for pelvic & abdominal pain. IUP was identified at that time.She is here for dating US and labsEDD based on US. 10 wks - 11/10/2025N OB education reviewedSA B precaution s discussedF /u in 4 wks Health Concerns Section Related Observation LastModified by Organization Detai ls LastModified Time None Recorded Concern Status LastModified by Organization Details LastModified Time None Recorded Payers Encounter Date Sequence Insurance Name Policy Number Policy Ambriz Covered Member ID Ambriz Member ID Guarantor Name 04/17/2025 1 [facility] [id number] Richardson Vargas [id number] [facility] [place] 04/17/2025 2 [place] Serenity [place] [id number] Se[facility] [place] OBGyn Episode Ob Episode Information Episode Created Date Number of Fetuses Patient Bloodtype Patient rh Status Prepregnancy Weight lbs Domestic Partner Domestic Partner Phone Father Name [employer] 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 Status 04/23/20 25 1 A Positive OPEN Fetus Data First Name Last Name Admitted to NICU Weight (g) Sex Living Outcome Pediatric Complications Fetus ID Race Codes Race Delivery Type [id number] Problems Problem Notes Problem Name Start Date End Date Resolution Snomed Code Not e Obese class II 04/23/2025 60966683949708 5 Past history of pre-eclampsia 04/23/2025 147966318395145 Baseline pr eE labs normal Past history of premature delivery 04/23/2025 973368960 34 wks Primary C/S Past history of section 04/23/2025 724708354 Primary C/S Marcellus Calculation Initial Marcellus Date [...] Date Ultra Sound Latest Days Gestation 0 [email or web address] 04/23/2025 11/11/19 26 0 Pre-radha Flowsheet Flowsheet Date 05/09/2025 Jarvis Score Blood Edema Fundus Height Fundus Units Glucose Ketones Leukocytes Nitrite Labor Signs Protein Cervic Dilation Cervic Effacement Cervic Station Type Weight in lbs Pre/Post Dialysis Refused With clothes 241.058943428049 BP Diastolic BP Location Tested BP Systolic BP Type 70 120 sitting Fetus Heart Rate Present A 151 Fetus Movement Comments UC visit - see A/P Flowsheet Date 05/15/2025 Jarvis Score Blood Edema Fundus Height Fundus Units Glucose Ketones Leukocytes Nitrite Labor Signs Protein Cervic Dilation Cervic Effacement Cervic Station none neg Type Weight in lbs Pre/Post Dialysis Refused Weight [id number] BP Diastolic BP Location Tested BP Systolic [...] in lbs Pre/Post Dialysis Refused With clothes [id number] BP Diastolic BP Location Tested BP Systolic [...]
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
--- OUTSIDE RECORDS SUMMARY | 2025-06-24 19:06 | XMS_ITS | Data Portability ---
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 Discussed plan. [email or web address] Not available 05/28/2023 15:28:41 Plan of Treatment Reminders Order Date Submit Date Provider Last Modified By Organization Details Last Modified Time Details Appointments None record ed. Lab None record ed. Referral None record ed. Procedures None record ed. Surgeries None record ed. Imaging non-st ress test 023 05/28/20 [facility], [address], [place], [address], 3 15:48:44 non-st ress test 023 05/24/20 23 [email or web address] [facility], [address], [place], [address], 3 06:55:20 Medication Orders None record ed. Patient TargetsNo targets recorded. Patient InstructionsNo instructions recorded. Reason for Referral None Reported. Results Created Date Observation Date Name Description Value Unit Range Abnormal Flag Note LastModifiedBy Organization Detail LastModifiedTime 05/10/20 23 05/11/2023 US, obste tric, follo w-up No observ ation record ed. [facility] [address], [place], [address], 05/11/2023 12:40:12 05/10/2005/10/2023 US, obste tric, follo w-up No observ ation record ed. [email or web address] [facility] [address], [place], [address], 05/10/2023 16:11:09 05/18/2005/18/2023 US, obste tric, follo w-up No observ ation record ed. [email or web address] [facility] [address], [place], [address], 05/21/2023 15:21:41 05/24/2005/24/2023 US, obste tric, bioph ysica l profi le + non-s tress test No observ ation record ed. [facility] [address], [place], [address], 05/26/2023 10:53:43 05/24/2005/24/2023 non-s tress test No observ ation record ed. [facility] [address], [place], [address], 05/25/2023 12:02:57 05/24/20 non-s tress test No observ ation record ed. [email or web address] Not Available 05/24 17:52:18 05/24/2005/24/2023 US, obste tric, bioph ysica l profi le + non-s tress test No observ ation record ed. [facility] [address], [place], [address], 05/24/2023 18:28:24 05/28/2005/28/2023 non-s tress test No observ ation record ed. [email or web address] [facility] [address], [place], [address], 05/28/2023 15:44:31 Result Notes None recorded. Problems Name Problem SNOMED Code Status Onset Date Resolution Date Notes Provider Name and Address Organization Details Recorded Time Mixed anxiety and depressi ve disorder 663700181 Active escitalo pram 10mg Christal Smith [facility] 3 15:00:55 Maternal obesity complica ting pregnanc y, childbir th and the puerperi um, antepart um 2698342300 07 Active bmi 35- ante testing 37w Janice Hair [facility], [facility] 3 12:37:05 Mixed anxiety and depressi ve disorder 558686036 Completed escitalo pram 10mg Christal [facility] 3 15:00:55 Bilatera l acquired clubfoot 5891072686 1485258 Completed - [facility] - 02/23, CORRECTION 03/05 3pm, 9/ f/u 730a Christalmatty Smith [facility] 3 15:00:55 History of SARS-CoV -2 7831150302 85621276 Completed at 24w- on [facility]SA[facility] 3 15:00:55 History of SARS-CoV -2 7557208321 73504310 Active at 24w- on ASA, [facility] 3 15:00:55 macrosom ia suspecte d 126599387 Completed >99% (6lbs) at 32 weeks, repeat growth 36 weeks Christal [facility] 3 15:00:55 Polyhydr amnios 29498780 Completed MONICA 30c, DVP 10cm at 32 weeks, BPPs [facility] d [facility] 15:00:55 Large for gestatio n age fetus 313096420 Completed 7lbs, 4oz @ [facility] >97% for 33w5d Christal Smith [facility] 3 15:00:55 Pre-ecla mpsia 071320682 Completed elevated PCR 05/24 Christal Smith [facility] 3 15:00:55 Pregnanc y 55956162 Completed 202206/07/2023 Jannette Tanner [facility] 5 13:17:32 Talipes equinova ida 120957128 Active 2022 Yohana Jain MD [address], [place], [address], [facility] 3 22:36:01 Anemia 466395290 Active 2022 1 tab slowfe daily Christalmatty Smith [facility] 3 14:59:27 Pregnanc y 75782954 Active 2024 Jannette Tanner [facility] 5 13:17:32 Problem Notes None recorded. Procedures Surgical History Date Name Laterality Status Provider Name and Address Organization Details Recorded Time 1 procedure on ear completed [facility] 11/10/2022 19:35:54 9 tonsilectomy/a denoids completed [facility] 11/10/2022 19:35:23 8 procedure on ear completed [facility] 11/10/2022 19:35:37 Imaging Results None recorded. Procedure Notes None recorded. Medical Equipment None Reported. Allergies Allergen ID Allergen Name Allergen Category Reaction Reaction Severity Criticality Documentation Date Start Date Code Code System Note Provider Name and Address Organization Details Recorded Time Product containin g penicilli n (product) medicatio n rash Not available Not available 11/10/2022 87146 [id number] SNOMED Felicitas lamas, [facility] 19:34:56 Medications Name Sig Start Date Stop Date Status Note LastModified by Organization Details LastModified Time clindamycin HCl 300 mg capsule TAKE 1 CAPSULE BY MOUTH THREE TIMES DAILY 11/10 completed Not Available Not Available Not Available fluconazole 150 mg tablet 12/25 completed Not Available Not Available Not Available clindamycin HCl 150 mg capsule TAKE 3 CAPSULES BY MOUTH EVERY 8 HOURS FOR 7 DAYS 11/10 completed Not Available Not Available Not Available oxycodone-a cetaminophe n 5 mg-325 mg tablet TAKE 1 TABLET BY MOUTH EVERY 4 HOURS NEEDED FOR PAIN active Not Available Not Available No t Available famotidine 20 mg tablet TAKE 1 TABLET BY MOUTH EVERY DAY NEEDED FOR STOMACH ACID OR REFLUX OR HEARTBURN OR ACID REFLUX active Not Available Not Available No t Available progesteron e micronized 200 mg capsule TAKE 1 CAPSULE BY MOUTH EVERY EVENING AT BEDTIME 04/23 completed Not Available Not Available Not Available sertraline 25 mg tablet TAKE 1 TABLET BY MOUTH EVERY DAY 11/10 completed Not Available Not Available Not Available naproxen 500 mg tablet TAKE 1 TABLET BY MOUTH TWICE DAILY 11/10 completed Not Available Not Available Not Available escitalopra m 10 mg tablet TAKE 1 TABLET BY MOUTH EVERY DAY active Not Available Not Available No t Available escitalopra m 5 mg tablet TAKE 1 TABLET BY MOUTH EVERY DAY 11/10 completed Not Available Not Available Not Available nitrofurant oin monohydrate /macrocryst als 100 mg capsule TAKE 1 CAPSULE BY MOUTH EVERY 12 HOURS FOR 3 DAYS 11/10 completed Not Available Not Available Not Available active Not Available Not Avai lable Not Available Baby Aspirin active Not Available Not Available Not Available Vitals Date Recorded Body weight Provider Name an d Address Organization Details Last Updated DateTime 05/28/2023 183619.61141 g Maddie MARCUS [address], [place], [address], [facility] 05/28/2023 17:20:31 Date Recorded Body height Body mass index (BMI) [Percentile] Per age and sex Body mass index (BMI) Systolic And Diastolic Systolic And Diastolic Provider Name and Address Organization Details Last Updated DateTime 3 174.63 cm 99 % 41.5 kg/m2 165/90 mm[Hg] 162/90 mm[Hg] Maria Guadalupe Yobani [facility] 3 15:29:05 Date Recorded Body weight Systolic And Diastolic Systolic And Diastolic Provider Name and Address Organization Details Last Updated DateTime 06/07/2023 184794.91 g 151/86 mm[Hg] 145/85 mm[Hg] Christal [facility] 06/07/2023 15:14:02 Date Recorded Body height Body mass index (BMI) [Percentile] Per age and sex Body mass index (BMI) Body weight Systolic And Diastolic Systolic And Diastolic Provider Name and Address Organization Details Last Updated DateTime 3 174.63 cm 98.34 % 37.2 kg/m2 641681. 09 g 167/96 mm[Hg] 152/90 mm[Hg] Christal [facility] 3 15:55:42 Social History Question Answer Notes LastModified by Organizat ion Details LastModified Time Tobacco Smoking Status Never Smoker Felicitas lamas, [facility] 11/10/2022 19:41:51 Are You Blind Or Do You Have Difficulty Seeing? No [email or web address] Information n ot available 11/10/2022 What Is Your Level Of Caffeine Consumption? Moderate [email or web address] Information not available 11/10/2022 In The 14 Days Before Symptom Onset, Have You Had Close Contact With A Laboratory-confirm ed COVID-19 While That Case Was Ill? No [email or web address] Information n ot available 11/10/2022 In The 14 Days Before Symptom Onset, Have You Had Close Contact With A Person Who Is Under Investigation For COVID-19 While That Person Was Ill? No [email or web address] Information not available 11/10/2022 Have You Been To An Area Known To Be High Risk For COVID-19? No [email or web address] Information not available 11/10/2022 Are You Deaf Or Do You Have Serious Difficulty Hearing? No [email or web address] Information not available 11/10/2022 What Type Of Diet Are You Following? REGULAR [email or web address] Information n ot available 11/10/2022 Do You Use Your Seat Belt Or Car Seat Routinely? Yes [email or web address] Information not available 11/10/2022 Do You Have Smoke And Carbon Monoxide Detectors In Your Home? Yes [email or web address] Information not available 11/10/2022 Do You Use Sunscreen Routinely? Yes [email or web address] Information not available 11/10/2022 Has Tobacco Cessation Counseling Been Provided? No [email or web address] Information not available 11/10/2022 Do You Have Difficulty Walking Or Climbing Stairs? No [email or web address] Information not available 11/10/2022 Sex: Unknown Functional Status Question Answer Note LastModified by Organizat ion Details LastModified Time Do you use any illicit or recreational drugs? No [email or web address] Information not available 11/10/2022 Do you or have you ever used any other forms of tobacco or nicotine? No [email or web address] Information not available 11/10/2022 What is your level of alcohol consumption? None [email or web address] Information not available 11/10/2022 Are you able to walk independently without assistance or assistive devices? YESWOREST [email or web address] Information not available 11/10/2022 Are you able to care for yourself independently? Yes [email or web address] Information not available 11/10/2022 Do you have difficulty dressing, bathing, grooming, or toileting? No Information not available 11/10/2022 What is your exercise level? Occasional Information not available 11/10/2022 Mental Status Question Answer Note LastModified by Organization D etails LastModified Time Do you feel stressed (tense, restless, nervous, or anxious, or unable to sleep at night)? [id number] [email or web address] Information not available 11/10/2022 Family History Relationship Description Onset Age of this Age Resolved Age Notes LastModified by Organization Details LastModified Time Mother Anemia [email or web address] Not available 11/10/2022 19:33:18 Mother Hypertensive disorder [email or web address] Not available 11/10 19:34:04 Mother Disorder of thyroid gland [email or web address] Not available 11/10 19:34:43 Maternal Grandmother Asthma [email or web address] Not available 19:33:27 Maternal Grandmother Hypertensive disorder Not available 11/10 19:34:04 Father Hypertensive disorder [email or web address] Not available 11/10 19:34:04 Maternal Aunt Hypertensive disorder Not available 11/10 19:34:04 Maternal Aunt Cyst of ovary Not available 11/10 19:34:17 Maternal Aunt Polycystic ovary syndrome [email or web address] Not available 11/10 19:34:28 Maternal Grandfather Hypertensive disorder [email or web address] Not available 11/10 19:34:04 Paternal Grandfather Hypertensive disorder Not available 11/10 19:34:04 Paternal Grandmother Hypertensive disorder Not available 11/10 19:34:04 Medical History Condition Response Allergies (Food, seasonal, environmental ) Y Other N Breast Cancer N Drug/Latex Allergies/Reactions Y Blood Transfusion N Lung Disease N Dermatologic Disorders N Defects or Inherited Disease N Breast Problem N Gestational Diabetes N Hematologic disorders N Anesthesia Complications N History of STI N Deep Vein Thrombosis N Polycystic ovary syndrome N Anxiety Disorder Y Autoimmune disease N Arthritis N Polyps N Infertility N History of abnormal pap N Acid Reflux (GERD) N Cancer N Varicosities N Stroke N Neurologic/Epilepsy N Endometriosis N High Cholesterol N Fibromyalgia N Headaches N Kidney Disease N Heart Problems N Kidney or Bladder Problems N Thyroid Problems N GI Problems N Eating Disorder N Anemia N Art (IVF or FET) N Psychiatric Illness N Ovarian Cancer N Diabetes N Pulmonary (TB, Asthma) N Hepatitis/Liver Disease N No Past Medical History N Eczema N Urinary Tract Infection N Abuse/Domestic Violence N Asthma Y Trauma/Violence N Depression/ depression Y Heart Disease N Pre-Eclampsia N Hypertension Y Osteoporosis N Thrombophilias N Gynecological History Statement/Question Response Date of Last Mammogram Date of LMP 08/15/2022 STIs/STDs N Date of DEXA bone scan Date of Last Pap Smear Current Control Method None Desired Control Method None LMP Approximate Obstetrics History GPAL:G 3 P 0 0 1 0 Type Value Spontaneous 1 Living 0 Total 3 Past Encounters Encounter ID Performer Location Encounter Start Date Encounter Closed Date Diagnosis/Indication Diagnosis SNOMED-CT Code Diagnosis ICD10 Code Diagnosis IMO Codes Diagnosis Note [id number] Rashi Kowalski MD [facility] [address],[place] [address] 11/10/2022 11:57:09 11/10/2022 12:25:44 screening 683176317 Z36.87 [id number] [facility] [address],[place] [address] 11/10/2022 11:58:18 11/10/2022 14:53:51 test positive 596382624 Z32.01 Risk factors addressed: Tobacco Cessation, Safe Sexual Practices, environmen jean claude, work hazards, travel restrictio ns, seat belt use.Eat a health well balanced diet, avoid alcohol, tobacco, and street drugs.Enga ge in daily low impact exercise, avoid temperatur e extremes, and cat, rodent, and bird feces.Avoi d travel to areas where zika virus is a concern.Of fered cf/sma/nip t. Will draw at 12 weeks. Handouts given and discussed with patient.Ch ildbirth classes recommende d.New OB sheet given.If previous , counseling .Pt verbalizes that she understand s the importance of above instructio ns.All questions were answered.4 5 minute total visitPatie nt reminded to have annual well woman examinatio n and address preventati ve healthcare . Amenorrhea 47689391 N91. 2 Venereal d isease screening 439695013 Z11.3 [id number] Rashi Kowalski MD [facility] [address],[place] [address] 11/17/2022 15:24:26 11/17/2022 16:12:11 Spotting per vagina in 675214761 O26.859 Z3A.08 [id number] Rashi Kowalski MD [facility] [address] [address] 11/26/2022 14:53:57 11/26/2022 15:20:42 Threatened miscarriage 07416145 O20.0 Z3A.09 [id number] Rashi Kowalski MD [facility] [address],[place] [address] 12/23/2022 12:06:13 12/23/2022 12:54:50 screening 733553506 Z36.82 [id number] Rashi Kowalski MD [facility] [address],[place] [address] 12/25/2022 12:01:51 12/25/2022 13:32:37 Routine care 396386299 Z34.81 [id number] Yohana Jain MD [facility] [address],[place] [address] 01/15/2023 12:15:52 01/15/2023 23:24:30 Routine care 107031243 Z34.02 [id number] Rashi Kowalski MD [facility] [address],[place] [address] 02/18/2023 14:08:50 02/18/2023 16:03:00 screening for malformation 865857079 Z36.3 [id number] Rashi Kowalski MD [facility] [address],[place] [address] 02/18/2023 14:11:05 02/18/2023 16:29:15 Routine care 135407049 Z34.81 [id number] Yohana Jain MD [facility] [address],[place] [address] 03/26/2023 10:25:32 03/29/2023 13:46:36 Routine care 906612844 Z34.02 Talipes equinovarus 3979 20535 Q66.00 History of SARS-CoV-2 29 64803603 19427170 Z86.16 [id number] CLAUDIO GOLDEN MD [facility] [address],[place] [address] 04/12/2023 14:43:15 04/12/2023 15:19:05 Routine care 173643896 Z34.83 [id number] [facility] [address],[place] [address] 04/23/2023 16:19:50 04/23/2023 17:56:20 Routine care 951969132 Z34.93 [id number] CLAUDIO GOLDEN MD [facility] [address],[place] [address] 05/10/2023 13:55:39 05/10/2023 15:14:24 Large for gestation age fetus 245306075 O36.63X0 O99.213 O40.3XX0 O35.8XX0 Z3A.32 [id number] CLAUDIO GOLDEN MD [facility] [address],[place] [address] 05/10/2023 14:02:03 05/10/2023 15:25:15 Gestation period, 32 weeks 1906255 Z3A.32 macr osomia suspected 373496976 O36.63X0 Polyhydramnios 51058841 O40.3XX0 [id number] CLAUDIO GOLDEN MD [facility] [address],[place] [address] 05/24/2023 16:27:11 05/25/2023 10:07:49 Maternal obesity complicating , childbirth and the puerperium, antepartum 4223820923 07 O99.213 O40.3XX0 O35.8XX0 Z3A.34 [id number] CLAUDIO GOLDEN MD [facility] [address],[place] [address] 05/24/2023 16:28:23 05/25/2023 16:52:31 Gestation period, 34 weeks 09909215 Z3A.34 Polyhydramnios 80406196 O40.3XX0 Elevated blood-pressure reading without diagnosis of hypertension 755093633 R03.0 [id number] CLAUDIO GOLDEN MD [facility] [address],[place] [address] 05/24/2023 16:29:28 05/25/2023 10:07:10 Maternal obesity complicating , childbirth and the puerperium, antepartum 3167493644 07 O99.213 [id number] CLAUDIO GOLDEN MD [facility] [address],[place] [address] 05/28/2023 14:34:59 05/28/2023 15:48:43 Pre-eclampsia 226612304 O14.05 [id number] CLAUDIO GOLDEN MD [facility] [address],[place] [address] 05/28/2023 14:36:10 05/30/2023 12:11:27 Pre-eclampsia 187677160 O14.05 Mixed anxi ety and depressive disorder 089064405 F41.8 Talipes equinovarus 3979 22295 Q66.00 Maternal o besity complicating , childbirth and the puerperium, antepartum 9570631694 07 O99.213 O40.3XX0 O35.8XX0 Z3A.34 Gestation period, 35 weeks 81959339 Z3A.35 [id number] Rashi Kowalski MD [facility] [address],[place] [address] 06/07/2023 14:49:56 06/07/2023 15:38:26 Postoperative care 662933016 Z48.89 This patient is a 17-year-ol d female who presents for postop follow-up. She is 1 week postop from a delivery. Her incision is clean dry and intact. She has no complaints . Her bleeding is minimal. She denies any nausea, vomiting, fever, chills. She denies any chest pain or shortness of breath. Her baby is doing well. Her mood is good. [id number] Rashi Kowalski MD [facility] [address],[place] [address] 07/01/2023 15:43:02 07/01/2023 16:23:53 care 205561778 Z39.2 this patient is a 17-year-ol d female presents for follow-up. She does not want contracept ion. She is not bleeding. She is not had sex. Her mood is good. Her baby is good. She is breastfeed ing. She is going to restart her antidepres sants. She does have some mild symptoms of depression . She will follow-up in 2 months for well-woman exam. Health Concerns Section Related Observation LastModified by Organization Detai ls LastModified Time None Recorded Concern Status LastModified by Organization Details LastModified Time None Recorded Advance Directives Directive None Recorded Payers Insurance Date Sequence Insurance Name Policy Number Policy Ambriz Covered Member ID Ambriz Member ID Guarantor Name 01/15/2023 1 [employer] [place] - DOS ON OR AFTER 2020 (MEDICAID REPLACEMENT - HMO) Serenity Malherek [id number] Serenity Malherek 05/20/2023 PAYMENT PLAN Serenity Malherek 11/18/2022 1 [place] [facility] Serenity Malherek [id number] Serenity Malherek 12/01/2022 1 *SELF PAY* Se renity Malherek 02/19/2023 PAYMENT PLAN Serenity Malherek 07/01/2023 1 [facility] (MEDICAID HMO) [id number] Serenity Malherek [id number] Serenity Malherek 04/12/2023 PAYMENT PLAN Serenity Malherek 09/18/2023 PAYMENT PLAN Serenity Malherek Notes Date Note Type Note Provider Name and Address Organization Details Recorded Time 05/28/2023 text/html Generic HPI TemplateReported by Patient CLAUDIO GOLDEN MD [address], [place], [address], [facility] 05/28/2023 23:21:23 06/07/2023 text/html This patient is a 17-year-old female who presents for postop follow-up. She is 1 week postop from a delivery. Her incision is clean dry and intact. She has no complaints. Her bleeding is minimal. She denies any nausea, vomiting, fever, chills. She denies any chest pain or shortness of breath. Her baby is doing well. Her mood is good. Rashi Kowalski MD [address], [place], [address], [facility] 06/07/2023 15:30:13 07/01/2023 text/html VisitReported by Patient this patient is a 17-year-old female presents for follow-up. She does not want contraception. She is not bleeding. She is not had sex. Her mood is good. Her baby is good. She is . She is going to restart her antidepressants. She does have some mild symptoms of depression. She will follow-up in 2 months for well-woman exam. Rashi Kowalski MD [address], [place], [address], [facility] 07/01/2023 16:18:41 OBGyn Episode Ob Episode Information Episode Created Date Number of Fetuses Patient Bloodtype Patient rh Status Prepregnancy Weight lbs Domestic Partner Domestic Partner Phone Father Name Timekeeper Status 12/26/19 23 1 A Positive 233 CLOSED Fetus Data First Name Last Name Admitted to NICU Weight (g) Sex Living Outcome Pediatric Complications Fetus ID Race Codes Race Delivery Type Problems Problem Notes [facility]: 04/20 u/s only 230p, 315p u/s onlyBMI 34.8 Problem Name Start Date End Date Resolution Snomed Code Not e Large for gestation age fetus 703096290 7lbs, 4oz @ [facility] >97% for 33w5d macrosomia suspected 349889197 >99% (6lbs) at 32 weeks, repeat growth 36 weeks Polyhydramnios 32628455 MONICA 3 0c, DVP 10cm at 32 weeks, BPPs scheduled Pre-eclampsia 079009042 elevat ed PCR 05/24 Mixed anxiety and depressive disorder MEDICATION 243442626 escitalo pram 10mg History of SARS-CoV-2 910470497886987326 at 24w- o n ASA, growth US at [facility] Bilateral acquired clubfoot [id number] - [facility] - 02/23, CORRECTION 03/05 3pm, 9/ f/u 730a Marcellus Calculation Initial Marcellus Date Initial Exam Date Initial Exam Provider Initial Ultrasound Date Last Menstrual Period Date Ultra Sound Weeks Gestation 07/01/2023 12/25/2022 11/10/2022 6 Eighteen To Twenty Week Marcellus Update Ultra Sound Date Fundal Height At Umbil Quickening Date Ultra Sound Latest Weeks Gestation Final Marcellus Confirmed By Final Marcellus Confirmed Date Final Marcellus Date Ultra Sound Latest Days Gestation 0 [email or web address] 12/25/2022 07/01/20 23 0 Pre-radha Flowsheet Flowsheet Date 12/25/2022 Jarvis Score Blood Edema Fundus Height Fundus Units Glucose Ketones Leukocytes Nitrite Labor Signs Protein Cervic Dilation Cervic Effacement Cervic Station 13 Type Weight in lbs Pre/Post Dialysis Refused Weight 234.633177174486 BP Diastolic BP Location Tested BP Systolic BP Type 71 R arm 125 sitting Fetus Heart Rate Present A 155 Fetus Movement Comments 17-year-old 2 para 0 83688 weeks gestation presents for initial care. She has an unremarkable medical, surgical, obstetric history. She has been infected with COVID. She is given vaccine recommendations. She was not vaccinated for COVID. She will begin routine care. We discussed care great detail. Flowsheet Date 01/15/2023 Jarvis Score Blood Edema Fundus Height Fundus Units Glucose Ketones Leukocytes Nitrite Labor Signs Protein Cervic Dilation Cervic Effacement Cervic Station neg none trace Type Weight in lbs Pre/Post Dialysis Refused Weight 240.365286166613 BP Diastolic BP Location Tested BP Systolic BP Type 73 L arm 119 sitting Fetus Heart Rate Present A 140 Fetus Movement A No Comments Doing ok. States her mood is ok. May stop progesterone. Anatomy US next visit. Flowsheet Date 02/18/2023 Jarvis Score Blood Edema Fundus Height Fundus Units Glucose Ketones Leukocytes Nitrite Labor Signs Protein Cervic Dilation Cervic Effacement Cervic Station Type Weight in lbs Pre/Post Dialysis Refused BP Diastolic BP Location Tested BP Systolic BP Type Fetus Heart Rate Present Fetus Movement Comments Flowsheet Date 02/18/2023 Jarvis Score Blood Edema Fundus Height Fundus Units Glucose Ketones Leukocytes Nitrite Labor Signs Protein Cervic Dilation Cervic Effacement Cervic Station 21 Type Weight in lbs Pre/Post Dialysis Refused Weight 249.892114374039 BP Diastolic BP Location Tested BP Systolic BP Type 74 R arm 128 sitting Fetus Heart Rate Present A 145 Fetus Movement Comments possible bllateral club feet , to see MFM, no complaints, no problems Flowsheet Date 03/26/2023 Jarvis Score Blood Edema Fundus Height Fundus Units Glucose Ketones Leukocytes Nitrite Labor Signs Protein Cervic Dilation Cervic Effacement Cervic Station none 31 Type Weight in lbs Pre/Post Dialysis Refused Weight 260.500943775029 BP Diastolic BP Location Tested BP Systolic BP Type 76 120 Fetus Heart Rate Present A 125 Fetus Movement A Yes Comments CLub feet confirmed with MFM and set up with [facility]. GCT next visit, discussed. Had COVID 2 weeks ago, taking ASA, doing growth US at [facility]. Discuss Tdap and flu shot next visit. Flowsheet Date 04/12/2023 Jarvis Score Blood Edema Fundus Height Fundus Units Glucose Ketones Leukocytes Nitrite Labor Signs Protein Cervic Dilation Cervic Effacement Cervic Station 1+ Type Weight in lbs Pre/Post Dialysis Refused Weight 268.051537181693 BP Diastolic BP Location Tested BP Systolic BP Type 76 124 Fetus Heart Rate Present A 145 Fetus Movement A Yes Comments Doing well. Minimal nausea, no vomiting. Baby active. GCT completed today. Recommended tdap and flu. RTC in 2 weeks. Flowsheet Date 04/23/2023 Jarvis Score Blood Edema Fundus Height Fundus Units Glucose Ketones Leukocytes Nitrite Labor Signs Protein Cervic Dilation Cervic Effacement Cervic Station trace none 34 none trace Type Weight in lbs Pre/Post Dialysis Refused Weight 275.107739308929 BP Diastolic BP Location Tested BP Systolic BP Type 67 115 Fetus Heart Rate Present A 136 Fetus Movement A Yes Comments patient states that having s ome cramping, bleeding, discharge and nausea. will schedule testing for bmi, had bleeding with intercourse, resolved, pelvic rest until next visit, pelvic jessenia, plan maternity support belt Flowsheet Date 05/10/2023 Jarvis Score Blood Edema Fundus Height Fundus Units Glucose Ketones Leukocytes Nitrite Labor Signs Protein Cervic Dilation Cervic Effacement Cervic Station Type Weight in lbs Pre/Post Dialysis Refused BP Diastolic BP Location Tested BP Systolic BP Type Fetus Heart Rate Present Fetus Movement Comments Flowsheet Date 05/10/2023 Jarvis Score Blood Edema Fundus Height Fundus Units Glucose Ketones Leukocytes Nitrite Labor Signs Protein Cervic Dilation Cervic Effacement Cervic Station 1+ none neg Type Weight in lbs Pre/Post Dialysis Refused Weight 272.246889725039 BP Diastolic BP Location Tested BP Systolic BP Type 72 114 Fetus Heart Rate Present A 150 Fetus Movement A Yes Comments Doing well, baby moving well . no contractions, cramping, LOF, VB. Discussed findings of suspected LGA and polyhydramnios today. Discussed healthy diet, limiting high sugar and processed foods. testing scheduled. Repeat growth US at 36 weeks. Flowsheet Date 05/24/2023 Jarvis Score Blood Edema Fundus Height Fundus Units Glucose Ketones Leukocytes Nitrite Labor Signs Protein Cervic Dilation Cervic Effacement Cervic Station Type Weight in lbs Pre/Post Dialysis Refused BP Diastolic BP Location Tested BP Systolic BP Type Fetus Heart Rate Present Fetus Movement Comments Flowsheet Date 05/24/2023 Jarvis Score Blood Edema Fundus Height Fundus Units Glucose Ketones Leukocytes Nitrite Labor Signs Protein Cervic Dilation Cervic Effacement Cervic Station Type Weight in lbs Pre/Post Dialysis Refused BP Diastolic BP Location Tested BP Systolic BP Type Fetus Heart Rate Present Fetus Movement Comments Flowsheet Date 05/24/2023 Jarvis Score Blood Edema Fundus Height Fundus Units Glucose Ketones Leukocytes Nitrite Labor Signs Protein Cervic Dilation Cervic Effacement Cervic Station none 1+ Type Weight in lbs Pre/Post Dialysis Refused BP Diastolic BP Location Tested BP Systolic BP Type Fetus Heart Rate Present A 140 Fetus Movement A Yes Comments Baby moving well, no strong contractions, LOF, VB. Polyhydramnios worse today, now 34cm. testing reactive. BPP 8/8. BP elevated, 150s systolic, reports intermittent headaches and RUQ pain. Sent to [place] for BP monitoring and lab work. Discussed gHTN and preeclampsia. Flowsheet Date 05/28/2023 Jarvis Score Blood Edema Fundus Height Fundus Units Glucose Ketones Leukocytes Nitrite Labor Signs Protein Cervic Dilation Cervic Effacement Cervic Station Type Weight in lbs Pre/Post Dialysis Refused BP Diastolic BP Location Tested BP Systolic BP Type Fetus Heart Rate Present Fetus Movement Comments Flowsheet Date 05/28/2023 Jarvis Score Blood Edema Fundus Height Fundus Units Glucose Ketones Leukocytes Nitrite Labor Signs Protein Cervic Dilation Cervic Effacement Cervic Station Type Weight in lbs Pre/Post Dialysis Refused Weight 279.389188887747 BP Diastolic BP Location Tested BP Systolic BP Type 90 165 90 162 Fetus Heart Rate Present Fetus Movement Comments No contractions, LOF, VB. Go od movement. Reports headache since this morning, unrelieved with tylenol. Intermittent RUQ pain. No vision changes. BP elevated again today, to [place] for lab work and BP monitoring. If BP elevated there, will meet criteria for preE w Sf by BPs and would recommend delivery. Discussed induction methods with patient and family. Directed to [facility]. Flowsheet Date 06/07/2023 Jarvis Score Blood Edema Fundus Height Fundus Units Glucose Ketones Leukocytes Nitrite Labor Signs Protein Cervic Dilation Cervic Effacement Cervic Station Type Weight in lbs Pre/Post Dialysis Refused Weight 248.632403508918 BP Diastolic BP Location Tested BP Systolic BP Type 86 R arm 151 sitting 85 R arm 145 sitting Fetus Heart Rate Present Fetus Movement Comments Menstrual History Last Menstrual Date Menses Monthly On Bcp Conception Prior Menses Frequency Hcg Plus Date Menarche Onset Age Genetic Screening And Infection History Question Response Note Mental Retardation/Autism false Patient's Age Will Be 35 Years Or Older At Estim ated Date of Delivery false Thalassemia (Palestinian, Upper Sorbian, Mediterranean, Or Background): MCV < 80 false Neural Tube Defect (Meningomyelocele, Spina Bifi da, Or Anencephaly) false Congenital Heart Defect false Down Syndrome false Jacoby-Sachs (eg, Sabianist, Cajun, Liberian-Barron) f alse Tom Disease false Sickle Cell Disease Or Trait () false Hemophilia Or Other Blood Disorders false Muscular Dystrophy false Cystic Fibrosis false [place]'s Ch[place] false Intellectual Disability/Autism false If Yes, Was Person Tested For Fragile X? false Other Inherited Genetic Or Chromosomal Disorder false Maternal Metabolic Disorder (eg, Type 1 Diabetes , PKU) false Patient Or Baby's Father Had A Child With Defects Not Listed Above false Recurrent Loss, Or A Stillbirth false Medications (including Suppl ements, Vitamins, Herbs, OTC Drugs), Illicit/Recreational Drugs, Alcohol false If Yes, Agent(s) And Strength/Dosage false Any Other Genetic History false Live With Someone With TB Or Exposed To TB false Patient Or Partner Has History Of Genital Herpes false Rash Or Viral Illness Since Last Menstrual Perio d false History Of STD, Gonorrhea, Chlamydia, HPV, Syphi lis false Other Infection History false History of HIV false History of Hepatitis false Prior GBS-infected child false Hemoglobinopathy Or Carrier false Other Structural Defect false Recent Travel History Outside of Country false Delivery Information Delivery Date Delivery Type Labor Anesthesia Weeks Gestation Incision Type Labor Labor Length Hrs Delivered By Post Complications Tubal Sterilization Discharge Date Comments 3 35 Discharge Information Feeding Method Contraceptive Method Maternal HG B and HCT Levels Ob Episode Information Episode Created Date Number of Fetuses Patient Bloodtype Patient rh Status Prepregnancy Weight lbs Domestic Partner Domestic Partner Phone Father Name Timekeeper Status 11/11/19 23 1 CLOSED Fetus Data First Name Last Name Admitted to NICU Weight (g) Sex Living Outcome Pediatric Complications Fetus ID Race Codes Race Delivery Type , [place]ont[place] ous [id number] Marcellus Calculation Initial Marcellus Date Initial Exam Date Initial Exam Provider Initial Ultrasound Date Last Menstrual Period Date Ultra Sound Weeks Gestation 0 Eighteen To Twenty Week Marcellus Update Ultra Sound Date Fundal Height At Umbil Quickening Date Ultra Sound Latest Weeks Gestation Final Marcellus Confirmed By Final Marcellus Confirmed Date Final Marcellus Date Ultra Sound Latest Days Gestation 0 0 Menstrual History Last Menstrual Date Menses Monthly On Bcp Conception Prior Menses Frequency Hcg Plus Date Menarche Onset Age Delivery Information Delivery Date Delivery Type Labor Anesthesia Weeks Gestation Incision Type Labor Labor Length Hrs Delivered By Post Complications Tubal Sterilization Discharge Date Comments 2 Discharge Information Feeding Method Contraceptive Method Maternal HG B and HCT Levels Ob Episode Information Episode Created Date Number of Fetuses Patient Bloodtype Patient rh Status Prepregnancy Weight lbs Domestic Partner Domestic Partner Phone Father Name Timekeeper Status 02/03/20 25 1 OPEN Fetus Data First Name Last Name Admitted to NICU Weight (g) Sex Living Outcome Pediatric Complications Fetus ID Race Codes Race Delivery Type [id number] Marcellus Calculation Initial Marcellus Date Initial Exam Date Initial Exam Provider Initial Ultrasound Date Last Menstrual Period Date Ultra Sound Weeks Gestation 02/02/2025 0 Eighteen To Twenty Week Marcellus Update Ultra Sound Date Fundal Height At Umbil Quickening Date Ultra Sound Latest Weeks Gestation Final Marcellus Confirmed By Final Marcellus Confirmed Date Final Marcellus Date Ultra Sound Latest Days Gestation 0 0 Menstrual History Last Menstrual Date Menses Monthly On Bcp Conception Prior Menses Frequency Hcg Plus Date Menarche Onset Age Delivery Information Delivery Date Delivery Type Labor Anesthesia Weeks Gestation Incision Type Labor Labor Length Hrs Delivered By Post Complications Tubal Sterilization Discharge Date Comments Discharge Information Feeding Method Contraceptive Method Maternal HG B and HCT Levels
--- OUTSIDE RECORDS SUMMARY | 2025-06-24 19:06 | XMS_ITS | Continuity of Care Document ---
Author Organization [facility], [facility] [place] Address [address] [place] [id number] Assessment No assessment recorded. Plan of Treatment Reminders Order Date Submit Date Provider Last Modified By Organization Details Last Modified Time Details Appointments OB SONOGRA M 30 2024 01:00P M [facility] [place] 3 Not available Not available Not available OB RETURN EST 2024 01:30P M MADDISON CASTILLO NP Not available Not available Not available Lab bacteri al vaginos is + vaginit is panel, vaginal 2024 025 [facility], [address] [place], [address], 06/20/2025 12:41:17 urinaly sis, dipstic k 2024 025 [email or web address] [facility] [place], [address] [place] [address], [address], 06/18/2025 12:19:25 culture , urine 2024 025 [facility], [address] [facility], [place], [address], 06/19/2025 20:07:53 Referral None recorde d. Procedures None recorde d. Surgeries None recorde d. Imaging None recorde d. Medication Orders nitrofu rantoin monohyd rate/ma crocrys tals 100 mg capsule 2024 025 [id number], [address], [place], [address], 06/18/2025 12:19:45 Patient TargetsNo targets recorded. Patient InstructionsNo instructions recorded. Reason for Referral None Reported. Results Created Date Observation Date Name Description Value Unit Range Abnormal Flag Note LastModifiedBy Organization Detail LastModifiedTime 05/09/2005/12/2025 CULTU RE, URINE , ROUTI NE culture, urine, routine SEE NOTE abnormal CULTU RE, URINE , ROUTI NE Micro Numbe r: [id number] Test Statu s: Final Speci men [...] See Thera py Comme nts Not Available [facility] [address], [place], [address], 05/12/2025 13:20:28 05/09/2005/11/2025 VAGIN ITIS PLUS STD PANEL bacterial vaginosis BV neg negati ve normal Not Available [facility] [address] [place] [address], [address], 05/12/2025 10:59:21 05/09/2005/11/2025 VAGIN ITIS PLUS STD PANEL alan species C. spp POS negati ve abnormal Not Available [facility] [address] [place], [address], 05/12/2025 10:59:21 05/09/2005/11/2025 VAGIN ITIS PLUS STD PANEL alan glabrata C. gla neg negati ve normal Not Available [facility] [address] [place] [address], [address], 05/12/2025 10:59:21 05/09/2005/11/2025 VAGIN ITIS PLUS STD PANEL chlamydia trachomatis CT neg negati ve normal This repor t is inten ded for use in clini ant monit oring and manag ement of patie nts. It is not inten ded for use in medic al-le gal appli catio n. Not Available [address], [address], 05/12/2025 10:59:21 05/09/2005/11/2025 VAGIN ITIS PLUS STD PANEL neisseria gonorrhoeae GC neg negati ve normal This repor t is inten ded for use in clini ant monit oring and manag ement of patie nts. It is not inten ded for use in medic al-le gal appli catio n. Not Available [facility] [address] [place] [address], [address], 05/12/2025 10:59:21 05/09/2005/11/2025 VAGIN ITIS PLUS STD PANEL trichomonas vaginalis TRICH POS negati ve abnormal Not Available [facility] [address] [place], [address], 05/12/2025 10:59:21 05/09/2005/09/2025 urina lysis , dipst ick Leukocytes Trace Not Available [facility] [place] [address] [facility], [place], [address], 05/09/2025 19:25:14 05/09/2005/09/2025 urina lysis , dipst ick Nitrite positi ve Not Available [facility] [address], [place], [address], 05/09/2025 19:25:14 05/09/2005/09/2025 urina lysis , dipst ick Urobilinogen .2 Not Available [address], [place], [address], 05/09/2025 19:25:14 05/09/2005/09/2025 urina lysis , dipst ick Protein Trace Not Available [address], [place], [address], 05/09/2025 19:25:14 05/09/2005/09/2025 urina lysis , dipst ick pH 6.0 Not Available [address], [place], [address], 05/09/2025 19:25:14 05/09/2005/09/2025 urina lysis , dipst ick Blood Negati ve Not Available [address], [place], [address], 05/09/2025 19:25:14 05/09/2005/09/2025 urina lysis , dipst ick Specific [place] 1.020 Not Available [address], [place], [address], 05/09/2025 19:25:14 05/09/2005/09/2025 urina lysis , dipst ick Ketone Large (80) Not Available [address], [place], [address], 05/09/2025 19:25:14 05/09/20 25 05/09/2025 urina lysis , dipst ick Bilirubin Negati ve Not Available [facility] [address], [place], [address], 05/09/2025 19:25:14 05/09/20 25 05/09/2025 urina lysis , dipst ick Glucose Negati ve Not Available [facility] [address], [place], [address], 05/09/2025 19:25:14 05/09/2005/09/2025 urina lysis , dipst ick Appearance Turbid Not Available [facility] [address], [place], [address], 05/09/2025 19:25:14 05/09/2005/09/2025 urina lysis , dipst ick Color Dark Yellow Not Available [facility] [address], [place], [address], 05/09/2025 19:25:14 05/17/20 25 05/17/2025 CHROM OSOME S 13, 18, 21 + SEX CHROM OSOME AKOSUA SIS chromosomes 13, 18, 21 + sex chromosome analysis Negati ve normal See PDF for compl ete resul ts. Overa ll Resul t: Negat lay Negat lay for all order ed condi tions Clini ant Notes : * The resid ual risks provi ded repre sent the [facility] e that the pregn carlos is affec imelda with the indic ated chrom osome aneup loidy in view of a negat lay resul t. * This is a scree ysabel test; there fore, false posit lay and false negat lay resul ts can occur . No irrev ersib le decis ion shoul d be made based on these findi ngs alone . Clini ant corre latio n with ultra sound findi ngs and histo ry is indic ated. If defin itive diagn osis is manuel ed, chori onic villu s sampl ing or amnio cente sis is necramses arceo. fract ion: 9.1% - fract ion is one compo nent of the algor ithm used and is combi eligio with other quali ty metri cs to deter mine the aneup loidy scree ysabel resul t. Not Available [facility] [address], [place], [address], 05/22/2025 01:09:06 05/18/2005/18/2025 ALICIA MENTA L (CF + SMA) [871] fundamental (CF + sma) [871] Negati ve normal See PDF for compl ete resul ts. Overa ll Resul t: Negat lay No disea se-ca using mutat ions detec imelda. Not Available [facility] [address], [place], [address], 05/25/2025 14:42:51 06/18/20 25 06/19/2025 CULTU RE, URINE , ROUTI NE culture, urine, routine SEE NOTE CULTU RE, URINE , ROUTI NE Micro Numbe r: [id number] Test Statu s: Final Speci men Sourc [...] Cultu re Trans port Tube. Not Available [employer] [facility] [address], [place], [address], 06/19/2025 20:07:53 06/18/20 25 06/20/2025 VAGIN ITIS PLUS STD PANEL bacterial vaginosis BV neg negati ve normal Not Available [facility] [address] [place] [address], [address], 06/20/2025 12:41:17 06/18/20 25 06/20/2025 VAGIN ITIS PLUS STD PANEL alan species C. spp POS negati ve abnormal Not Available [address], [address], 06/20/2025 12:41:17 06/18/20 25 06/20/2025 VAGIN ITIS PLUS STD PANEL alan glabrata C. gla neg negati ve normal Not Available [address], [address], 06/20/2025 12:41:17 06/18/20 25 06/20/2025 VAGIN ITIS PLUS STD PANEL chlamydia trachomatis CT neg negati ve normal This repor t is inten ded for use in clini ant monit oring and manag ement of patie nts. It is not inten ded for use in medic al-le gal appli catio n. Not Available [address], [address], 06/20/2025 12:41:17 06/18/20 25 06/20/2025 VAGIN ITIS PLUS STD PANEL neisseria gonorrhoeae GC neg negati ve normal This repor t is inten ded for use in clini ant monit oring and manag ement of patie nts. It is not inten ded for use in medic al-le gal appli catio n. Not Available [facility] [address] [place] [address], [address], 06/20/2025 12:41:17 06/18/20 25 06/20/2025 VAGIN ITIS PLUS STD PANEL trichomonas vaginalis TRICH POS negati ve abnormal Not Available [address], [address], 06/20/2025 12:41:17 06/18/20 25 06/18/2025 urina lysis , dipst ick Leukocytes Small Not Available [facility] [place] [address], [place], [address], 06/18/2025 12:12:59 06/18/2006/18/2025 urina lysis , dipst ick Nitrite negati ve Not Available [facility] [address], [place], [address], 06/18/2025 12:12:59 06/18/2006/18/2025 urina lysis , dipst ick Urobilinogen .2 Not Available [facility] [address], [place], [address], 06/18/2025 12:12:59 06/18/2006/18/2025 urina lysis , dipst ick Protein Trace Not Available [facility] [address], [place], [address], 06/18/2025 12:12:59 06/18/2006/18/2025 urina lysis , dipst ick pH 6.0 Not Available [facility] [address], [place], [address], 06/18/2025 12:12:59 06/18/2006/18/2025 urina lysis , dipst ick Blood Negati ve Not Available [facility] [address], [place], [address], 06/18/2025 12:12:59 06/18/2006/18/2025 urina lysis , dipst ick Specific [place] 1.025 Not Available [facility] [address], [place], [address], 06/18/2025 12:12:59 06/18/2006/18/2025 urina lysis , dipst ick Ketone Negati ve Not Available [facility] [address], [place], [address], 06/18/2025 12:12:59 06/18/20 25 06/18/2025 urina lysis , dipst ick Bilirubin Negati ve Not Available [facility] [address], [place], [address], 06/18/2025 12:12:59 06/18/2006/18/2025 urina lysis , dipst ick Glucose Negati ve Not Available [facility] [address], [place], [address], 06/18/2025 12:12:59 06/18/2006/18/2025 urina lysis , dipst ick Appearance Cloudy Not Available [facility] [address], [place], [address], 06/18/2025 12:12:59 06/18/20 25 06/18/2025 urina lysis , dipst ick Color Dark Yellow Not Available [facility] [address], [address], 06/18/2025 12:12:59 05/12/2005/09/2025 US, trans vagin al No observ ation record ed. [email or web address] [place] [address], [place], [address], 05/12/2025 20:14:46 Result Notes None recorded. Problems Name Problem SNOMED Code Status Onset Date Resolution Date Notes Provider Name and Address Organization Details Recorded Time test positive 531750804 Active 2024 NINA BRITO [address] [place], [address] , [facility] 5 14:05:27 Mixed anxiety and depressiv e disorder 391768501 Active 2024 NICO MOISE [facility] [address] [place] [address], [address] , [facility] 5 14:05:30 Bipolar I disorder 621204576 Active 2024 NICO MOISE [address], [address] , [facility] 5 14:06:08 Mild intermitt ent asthma 371039537 Active 2024 NICO MOISE [address], [address] , [facility] 5 14:06:08 Past history of section 222680942 Active 2024 Primary C/S Manjula Enciso CNM [address] [place] [address], [address] , [facility] 5 02:48:57 Past history of pre-eclam psia 20777835869 9100 Active 2024 Baseline preE labs normal Manjula Enciso CNM [address] [place] [address], [address] , [facility] 5 02:50:40 58831966 Active 2024 Manjula Enciso CNM [address] [place], [address] , [facility] 5 02:45:34 Past history of section 194866154 Active 2024 Primary C/S Manjula Enciso CNM [address] [place] [address], [address] , [facility] 5 02:48:57 Obese class II 38065293489 4105 Active 2024 Manjula Enciso CNM [address] [place], [address] , [facility] 5 02:49:11 Past history of pre-eclam psia 30960709329 9100 Active 2024 Baseline preE labs normal BÁRBARA Smiley [address] [place], [address] , [facility] 5 02:50:40 Past history of premature delivery 666343612 Active 2024 34 wks Primary C/S Manjula Enciso, [facility] [address] [place], [address] , [facility] 02:49:55 Problem Notes None recorded. Procedures Surgical History Date Name Laterality Status Provider Name and Address Organization Details Recorded Time section completed Yessenia Barrazaa [facility] 03/14/2025 13:12:04 Imaging Results None recorded. Procedure Notes None recorded. Medical Equipment None Reported. Allergies Allergen ID Allergen Name Allergen Category Reaction Reaction Severity Criticality Documentation Date Start Date Code Code System Note Provider Name and Address Organization Details Recorded Time 394327 Product containin g penicilli n (product) medicatio n rash Not available low 02/20/20252015 39122 8001 SNOMED Jaycee Sprague [facility] 15:06:15 Medications Name Sig Start Date Stop [...] and Address Organization Details Last Updated DateTime 06/18/2025 175.26 cm 96.53 % 34.8 kg/m2 382537. 36 g 120/70 mm[Hg] Kerry Green [facility] 12:10:22 Social History Question Answer Notes LastModified by [employer]) Details LastModified Time Tobacco Smoking Status Never Smoker Jaycee Sprague null, [facility] 02/20/2025 15:09:05 If You Are , What Was Your Level Of Alcohol Consumption Prior To ? None [email or web address] Information not available 03/14/2025 Are You Blind Or Do You Have Difficulty Seeing? No [email or web address] Information not available 02/20/2025 Are You Deaf Or Do You Have Serious Difficulty Hearing? No [email or web address] Information not available 02/20/2025 What Type Of Diet Are You Following? REGULAR [email or web address] Information not available 03/14/2025 Which Illicit Or Recreational Drugs Have You Used? Katia Information not available 05/15/2025 How Many Children Do You Have? 1 [email or web address] Information not available 02/20/2025 What Is Your Relationship Status? Domestic Partner [email or web address] Information not available 02/20/2025 Are You Sexually Active? Yes [email or web address] Information not available 02/20/2025 Have You Used IV Drugs? No Information not available 05/15/2025 Sex: Unknown Functional Status Question Answer Note LastModified by [employer]) Details LastModified Time Do you use any illicit or recreational drugs? Yes Information not available 05/15/2025 Do you or have you ever used any other forms of tobacco or nicotine? No [email or web address] Information not available 02/20/2025 What is your level of alcohol consumption? None [email or web address] Information not available 02/20/2025 Are you currently employed? No Information not available 05/15/2025 Mental Status None recorded. Family History Nothing Reported. Medical History Condition Response Anxiety Disorder Y High Blood Pressure Y Bipolar Disorder Y Asthma Y Depression Y Gynecological History Statement/Question Response Flow Moderate [...] ICD10 Code Diagnosis IMO Codes Diagnosis Note [id number] Manjula Enciso CNM [facility] [address] [place] [address] 06/18/2025 12:02:47 06/18/2025 13:39:41 Gestation period, 19 weeks 82858898 Z3A.19 [id number] Advised pt to f/u immediatel y if temp>101.; abdominal pain, vaginal bleeding greater than 1 pad/hr for greater than 2 hours; vaginal bleeding with or without cramping; bleeding w/clots; cramping like a period. Suprapubic pain 59589463 6 R10.24 [id number] History of gynecological disorder 518415934 Z86.19 [id number] Health Concerns Section Related Observation LastModified by Organization Detai ls LastModified Time None Recorded Concern Status LastModified by Organization Details LastModified Time None Recorded Payers Encounter Date Sequence Insurance Name Policy Number Policy Ambriz Covered Member ID Ambriz Member ID Guarantor Name 06/18/2025 1 [facility] [id number] Richardson Vargas [id number] [facility] Notes Date Note Type Note Provider Name and Address Organization Details Recorded Time 06/18/2025 text/html Patient is here today for a routine OB visit. She is currently at 19.2 weeks gestation. vitamins: yes She has felt movement. She denies any complaints of the presence of vaginal bleed, leaking fluid, abdominal cramps, nausea, vomiting, headache or visual disturbances.Laura ent c/o light cramping Manjula Enciso CNM [address] [place], [address], [facility] [email or web address] 06/18/2025 12:27:07 OBGyn Episode Ob Episode Information Episode Created Date Number of Fetuses Patient Bloodtype Patient rh Status Prepregnancy Weight lbs Domestic Partner Domestic Partner Phone Father Name Garment Turner Status 04/23/20 25 1 A Positive OPEN Fetus Data First Name Last Name Admitted to NICU Weight (g) Sex Living Outcome Pediatric Complications Fetus ID Race Codes Race Delivery Type [id number] Problems Problem Notes Problem Name Start Date End Date Resolution Snomed Code Not e Obese class II 04/23/2025 41331634199600 5 Past history of pre-eclampsia 04/23/2025 726536101041913 Baseline pr eE labs normal Past history of premature delivery 04/23/2025 544684913 34 wks Primary C/S Past history of section 04/23/2025 318771538 Primary C/S Marcellus Calculation Initial Marcellus Date [...] Date Ultra Sound Latest Days Gestation 0 [email or web address] 04/23/2025 11/11/19 26 0 Pre-radha Flowsheet Flowsheet Date 05/09/2025 Jarvis Score Blood Edema Fundus Height Fundus Units Glucose Ketones Leukocytes Nitrite Labor Signs Protein Cervic Dilation Cervic Effacement Cervic Station Type Weight in lbs Pre/Post Dialysis Refused With clothes 241.286689876361 BP Diastolic BP Location Tested BP Systolic BP Type 70 120 sitting Fetus Heart Rate Present A 151 Fetus Movement Comments UC visit - see A/P Flowsheet Date 05/15/2025 Jarvis Score Blood Edema Fundus Height Fundus Units Glucose Ketones Leukocytes Nitrite Labor Signs Protein Cervic Dilation Cervic Effacement Cervic Station none neg Type Weight in lbs Pre/Post Dialysis Refused Weight 241.298364081557 BP Diastolic BP Location Tested BP Systolic [...] in lbs Pre/Post Dialysis Refused With clothes 235.504235407582 BP Diastolic BP Location Tested BP Systolic [...]
--- OUTSIDE RECORDS SUMMARY | 2025-06-24 19:06 | XMS_ITS | Continuity of Care Document ---
Author Organization [facility] Address [address] [place] [phone] Assessment No assessment recorded. Plan of Treatment Reminders Order Date Submit Date Provider Last Modified By Organization Details Last Modified Time Details Appointments OB SONOGRA M 30 2024 01:00P M [facility] [place] 3 Not available Not available Not available OB RETURN EST 2024 01:30P M MADDISON CASTILLO, HISTOLOGY TECHNICIAN Not available Not available Not available Lab urinaly sis, dipstic k 2024 025 [facility], [address] [place] [address], [place], [address], 05/09/2025 19:36:23 culture , urine 2024 025 [facility], [address] [facility], [place], [address], 05/11/2025 20:10:50 bacteri al vaginos is + vaginit is panel, vaginal 2024 025 TACO [facility] Navin, [address] [place], [address], 05/12/2025 10:59:21 Referral None recorde d. Procedures None recorde d. Surgeries None recorde d. Imaging US, transva ginal 2024 025 TACO Not available 05/12/2025 16:00:31 Medication Orders nitrofu rantoin monohyd rate/ma crocrys tals 100 mg capsule 2024 [id number], [address], [place], [address], 05/23/2025 05:02:50 ondanse elaine 4 mg disinte grating tablet 2024 [id number], [address], [place], [address], 05/15/2025 17:14:26 metoclo pramide 10 mg tablet 2024 025 [id number], [address] , [place], [address], 06/18/2025 12:12:48 metroni dazole 0.75 % (37.5 mg/5 gram) vaginal gel 2024 025 [id number], [address] , [place], [address], 05/21/2025 05:01:36 Patient TargetsNo targets recorded. Patient InstructionsNo instructions recorded. Reason for Referral None Reported. Results Created Date Observation Date Name Description Value Unit Range Abnormal Flag Note LastModifiedBy Organization Detail LastModifiedTime 05/09/2005/12/2025 CULTU RE, URINE , ROUTI NE culture, urine, routine SEE NOTE abnormal CULTU RE, URINE , ROUTI NE Micro Numbe r: [id number] Test Statu s: Final Speci men [...] See Thera py Comme nts Not Available [facility] [address] [place], [address], 05/12/2025 13:20:28 05/09/2005/11/2025 VAGIN ITIS PLUS STD PANEL bacterial vaginosis BV neg negati ve normal Not Available [address], [address], 05/12/2025 10:59:21 05/09/2005/11/2025 VAGIN ITIS PLUS STD PANEL alan species C. spp POS negati ve abnormal Not Available [facility] Navin [address] [place] [address], [address], 05/12/2025 10:59:21 05/09/2005/11/2025 VAGIN ITIS PLUS STD PANEL alan glabrata C. gla neg negati ve normal Not Available Hedrick Navin [address] [place] [address], [address], 05/12/2025 10:59:21 05/09/2005/11/2025 VAGIN ITIS PLUS STD PANEL chlamydia trachomatis CT neg negati ve normal This repor t is inten ded for use in clini ant monit oring and manag ement of patie nts. It is not inten ded for use in medic al-le gal appli catio n. Not Available Hedrick Navin [address] [place], [address], 05/12/2025 10:59:21 10/22/20 25 05/11/2025 VAGIN ITIS PLUS STD PANEL neisseria gonorrhoeae GC neg negati ve normal This repor t is inten ded for use in clini ant monit oring and manag ement of shiv salgado. It is not inten ded for use in medic al-le gal appli catio n. Not Available Hedrick Navin [address] [place], [address], 05/12/2025 10:59:21 05/09/20 25 05/11/2025 VAGIN ITIS PLUS STD PANEL trichomonas vaginalis TRICH POS negati ve abnormal Not Available Hedrick Navin [address] [place], [address], 05/12/2025 10:59:21 05/09/2005/09/2025 urina lysis , dipst ick Leukocytes Trace Not Available [facility] [address], [address], 05/09/2025 19:25:14 05/09/2005/09/2025 urina lysis , dipst ick Nitrite positi ve Not Available [facility] [address], [address], 05/09/2025 19:25:14 05/09/2005/09/2025 urina lysis , dipst ick Urobilinogen .2 Not Available [facility] [address], [address], 05/09/2025 19:25:14 05/09/2005/09/2025 urina lysis , dipst ick Protein Trace Not Available [address], [address], 05/09/2025 19:25:14 05/09/2005/09/2025 urina lysis , dipst ick pH 6.0 Not Available [facility] [address], [place], [address], 05/09/2025 19:25:14 05/09/2005/09/2025 urina lysis , dipst ick Blood Negati ve Not Available [facility] [address], [place], [address], 05/09/2025 19:25:14 05/09/2005/09/2025 urina lysis , dipst ick Specific [place] 1.020 Not Available [address], [place], [address], 05/09/2025 19:25:14 05/09/2005/09/2025 urina lysis , dipst ick Ketone Large (80) Not Available [address], [place], [address], 05/09/2025 19:25:14 05/09/2005/09/2025 urina lysis , dipst ick Bilirubin Negati ve Not Available [address], [place], [address], 05/09/2025 19:25:14 05/09/2005/09/2025 urina lysis , dipst ick Glucose Negati ve Not Available [address], [place], [address], 05/09/2025 19:25:14 05/09/2005/09/2025 urina lysis , dipst ick Appearance Turbid Not Available [facility] [address], [place], [address], 05/09/2025 19:25:14 05/09/2005/09/2025 urina lysis , dipst ick Color Dark Yellow Not Available [facility] [place] [address] [place], [address], 05/09/2025 19:25:14 05/12/2005/09/2025 US, trans vagin al No observ ation record ed. [email or web address] [place] [address], [place], [address], 05/12/2025 20:14:46 Result Notes None recorded. Problems Name Problem SNOMED Code Status Onset Date Resolution Date Notes Provider Name and Address Organization Details Recorded Time test positive 288325910 Active 2024 NINA BRITO [facility] [place], [address] , [facility] 5 14:05:27 Mixed anxiety and depressiv e disorder 543131149 Active 2024 NINA BRITO [facility] [place], [address] , [facility] 5 14:05:30 Bipolar I disorder 694709020 Active 2024 NINA BRITO [facility] [place], [address] , [facility] 5 14:06:08 Mild intermitt ent asthma 390277141 Active 2024 NINA BRITO [address] [place] [address], [address] , [facility] 5 14:06:08 Past history of section 150631493 Active 2024 Primary C/S Manjula Enciso CNM [address] [place], [address] , [facility] 5 02:48:57 Past history of pre-eclam psia 58737110706 9100 Active 2024 Baseline preE labs normal Manjula Enciso CNM [address] [place], [address] , [facility] 5 02:50:40 70217280 Active 2024 aMnjula Enciso CNM [address] [place], [address] , [facility] 5 02:45:34 Past history of section 715923826 Active 2024 Primary C/S Manjula Enciso, BÁRBARA [address] [place] [address], [address] , [facility] 5 02:48:57 Obese class II 67934632228 4105 Active [address], [address] , [facility] 5 02:49:11 Past history of pre-eclam psia 04453496172 9100 Active 2024 Baseline preE labs normal BÁRBARA [address], [address] , [facility] 5 02:50:40 Past history of premature delivery 340106975 Active 2024 34 wks Primary C/S BÁRBARA [address], [address] , [facility] IV 5 02:49:55 Problem Notes None recorded. Procedures Surgical History Date Name Laterality Status Provider Name and Address Organization Details Recorded Time section completed Yessenia Barros [facility] 03/14/2025 13:12:04 Imaging Results None recorded. Procedure Notes None recorded. Medical Equipment None Reported. Allergies Allergen ID Allergen Name Allergen Category Reaction Reaction Severity Criticality Documentation Date Start Date Code Code System Note Provider Name and Address Organization Details Recorded Time 974257 Product containin g penicilli n (product) medicatio n rash Not available low 02/20/20252015 55909 8001 SNOMED Jaycee Sprague [facility], [facility] 15:06:15 Medications Name Sig Start Date Stop [...] and Address Organization Details Last Updated DateTime 05/09/2025 175.26 cm 96.98 % 35.7 kg/m2 714214. 64 g 120/70 mm[Hg] Kerry Green [facility] 19:24:08 Social History Question Answer Notes LastModified by Organizat ion Details LastModified Time Tobacco Smoking Status Never Smoker Jaycee Sprague null, [facility] 02/20/2025 15:09:05 If You Are , What Was Your Level Of Alcohol Consumption Prior To ? None Information not available 03/14/2025 Are You Blind Or Do You Have Difficulty Seeing? No [email or web address] Information not available 02/20/2025 Are You Deaf Or Do You Have Serious Difficulty Hearing? No Information not available 02/20/2025 What Type Of Diet Are You Following? REGULAR [email or web address] Information not available 03/14/2025 Which Illicit Or Recreational Drugs Have You Used? Katia hess Information not available 05/15/2025 How Many Children Do You Have? 1 [email or web address] Information not available 02/20/2025 What Is Your Relationship Status? Domestic Partner [email or web address] Information not available 02/20/2025 Are You Sexually Active? Yes [email or web address] Information not available 02/20/2025 Have You Used IV Drugs? No [email or web address] Information not available 05/15/2025 Sex: Unknown Functional Status Question Answer Note LastModified by Organizat ion Details LastModified Time Do you use any illicit or recreational drugs? Yes [email or web address] Information not available 05/15/2025 Do you or have you ever used any other forms of tobacco or nicotine? No [email or web address] Information not available 02/20/2025 What is your [...] ICD10 Code Diagnosis IMO Codes Diagnosis Note [id number] Manjula Enciso CNM [facility] [place] [address] [place] [address] 04/17/2025 16:42:05 04/17/2025 19:51:20 test positive 465668374 Z32.01 247215 LMP 12/24/2024Pt was seen about 3 wks ago in the ED for pelvic & abdominal pain. IUP was identified at that time.She is here for dating US and labsEDD based on US. 10 wks - 11/10/2025N OB education reviewedSA B precaution s discussedF /u in 4 wks [id number] Manjula Enciso CNM [facility] [place] [address] [place] [address] 05/09/2025 18:59:10 05/09/2025 20:02:04 Gestation period, 13 weeks 73502017 Z3A.13 4769836 Advised pt to f/u immediatel y if temp>101.; abdominal pain, vaginal bleeding greater than 1 pad/hr for greater than 2 hours; vaginal bleeding with or without cramping; bleeding w/clots; cramping like a period. Dysuria 85983980 R30.0 79650 Pt reports dysuria, frequency. U dip positive nitrites - Rx for nitrofuran toin sent.Pending Sale To [facility] er POC pending culture results. Acute vaginitis 89000205 N76.0 - suspected BV. - large amounts of malodorous discharge present - Metrogel rx sent - Vulvar hygiene reviewed - Additional POC pending results - Pain in female pelvis 42 0611988 O26.899 R10.20 906089 No abnormalit ies seen on US. Discussed findings w/pt.Pain most consistent with RLP and or UTI symptoms Nausea and vomiting in 6305512987 O21.9 480676 Nausea of - advised patient to keep [...] improvemen t in N/V can come to clinic for IV hydration. Health Concerns Section Related Observation LastModified by Organization Detai ls LastModified Time None Recorded Concern Status LastModified by Organization Details LastModified Time None Recorded Payers Encounter Date Sequence Insurance Name Policy Number Policy Ambriz Covered Member ID Ambriz Member ID Guarantor Name 05/09/2025 1 [facility] [id number] Richardson Vargas [id number] [employer] [place] 05/09/2025 2 [place] Se[employer]ity [place] [id number] Se[employer] [place] Notes Date Note Type Note Provider Name and Address Organization Details Recorded Time 5 text/html Vaginal Infection/DischargeReport ed by PatientHPIFor associated symptoms, patient reportspain during urination (dysuria). For location, patient reportsinternalandvagina. For quality, patient reportsodor,fishy smell, andincreased amount. For severity, patient reportsmoderate. For duration/started, patient reports4-7 days. For onset/timing, patient reports__andfluctuating. For context, patient reportscontraception method: __.Patient c/o UTI symptoms cramping and odor, patient c/o wants nausea medication called in pharmacy if she canROS as noted in the HPI Manjula Enciso, CN [address] [place], [address], [facility] 05/10/2025 11:55:49 OBGyn Episode Ob Episode Information Episode Created Date Number of Fetuses Patient Bloodtype Patient rh Status Prepregnancy Weight lbs Domestic Partner Domestic Partner Phone Father Name Supervisor [employer] Status 04/23/20 25 1 A Positive OPEN Fetus Data First Name Last Name Admitted to NICU Weight (g) Sex Living Outcome Pediatric Complications Fetus ID Race Codes Race Delivery Type [id number] Problems Problem Notes Problem Name Start Date End Date Resolution Snomed Code Not e Obese class II 04/23/2025 87367632363404 5 Past history of pre-eclampsia 04/23/2025 129276135779373 Baseline pr eE labs normal Past history of premature delivery 04/23/2025 226354483 34 wks Primary C/S Past history of section 04/23/2025 [id number] Primary C/S Marcellus Calculation Initial Marcellus Date [...] Date Ultra Sound Latest Days Gestation 0 [email or web address] 04/23/2025 11/11/19 26 0 Pre- Flowsheet Flowsheet Date 05/09/2025 Jarvis Score Blood Edema Fundus Height Fundus Units Glucose Ketones Leukocytes Nitrite Labor Signs Protein Cervic Dilation Cervic Effacement Cervic Station Type Weight in lbs Pre/Post Dialysis Refused With clothes 241.032855814503 BP Diastolic BP Location Tested BP Systolic BP Type 70 120 sitting Fetus Heart Rate Present A 151 Fetus Movement Comments UC visit - see A/P Flowsheet Date 05/15/2025 Jarvis Score Blood Edema Fundus Height Fundus Units Glucose Ketones Leukocytes Nitrite Labor Signs Protein Cervic Dilation Cervic Effacement Cervic Station none neg Type Weight in lbs Pre/Post Dialysis Refused Weight 241.486723598222 BP Diastolic BP Location Tested BP Systolic [...] in lbs Pre/Post Dialysis Refused With clothes 235.315939060898 BP Diastolic BP Location Tested BP Systolic [...]
--- OUTSIDE RECORDS SUMMARY | 2025-06-24 19:07 | XMS_ITS | Data Portability ---
Author Organization [facility] [employer] , [facility] Address [address] [place] [address] Assessment No assessment recorded. 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 Not available Not available Not available Lab bacte rial vagin osis + vagin itis panel , vagin al 2024 025 [facility], [address] [place], [address], 06/20/2025 12:41:17 urina lysis , dipst ick 2024 025 [email or web address] [facility], [address] [place] [address], [phone], 06/18/2025 12:19:25 cultu re, urine 2024 025 [email or web address], [address] [facility], [place], [address], 06/19/2025 20:07:53 urina lysis , dipst ick 2024 025 [email or web address] [facility] [place], [address] [place] [address], [phone], 05/09/2025 19:36:23 cultu re, urine 2024 025 [email or web address] [facility], [address] [place], [address], 05/11/2025 20:10:50 bacte rial vagin osis + vagin itis panel , vagin al 2024 025 [facility], [address] [place], [address], 05/12/2025 10:59:21 hemog lobin A1c, QN, blood 2024 025 [facility], [address] [place] [address], [address], 04/19/2025 11:41:20 abo group + rh type, blood 2024 025 [email or web address] [facility], [address] [place], [address], 04/26/2025 11:26:05 CBC w/ auto diff 2024 025 [facility], [address] [place] [address], [address], 04/19/2025 12:17:35 CT + NG DNA, PCR, unspe cifie d speci men 2024 025 [facility], [address] [place] [address], [address], 04/19/2025 19:58:29 drug of abuse panel , urine 2024 025 [facility], [address] [place], [address], 04/19/2025 11:05:22 obste tric scree n + HIV, serum or blood 2024 025 [facility], [address] [place], [address], 04/19/2025 12:01:59 measl es igg Ab, serum 2024 025 [facility] [place], [address] [place], [address], 04/26/2025 11:26:04 cultu re, urine 2024 025 [facility] [place] [facility], [address] [place], [address], 04/26/2025 11:26:05 varic aly- zoste r igg Ab scree n, serum 2024 025 [facility] [place] [facility], [address] [place], [address], 04/26/2025 11:26:03 hemog lobin opalisa y profi le, blood 2024 025 [facility] [place] [facility], [address] [place], [address], 04/26/2025 11:26:03 antib alber scree n, serum or plasm a 2024 025 [facility], [address] [place], [address], 04/26/2025 11:26:04 CMP, serum or plasm a 2024 025 [facility] [employer] [facility], [address] [place] [address], [address], 04/17/2025 19:12:05 prote in:cr eatin ine ratio , urine 2024 025 [email or web address], [address] [place] [address], [address], 04/19/2025 11:00:10 pregn carlos test, urine 2024 025 [email or web address], [address] [place], [address], 03/14/2025 13:46:48 beta- HCG, quant itati ve, serum or plasm a 2024 025 [facility], [address] [place], [address], 03/15/2025 11:51:29 proge stero ne, serum 2024 025 [facility], [address] [place], [address], 03/15/2025 11:20:49 Referral menta l healt h clini c refer ral 2024 025 [facility] Brenda Pettit [facility], [address] [place], [address], 03/22/2025 16:24:19 Procedures None recor ded. Surgeries None recor ded. Imaging US, trans vagin al 2024 025 [facility] Not available 05/12/2025 16:00:31 US, trans vagin al 2024 025 [facility] Not available 04/18/2025 14:13:14 Medication Orders nitro furan toin monoh ydrat e/mac rocry stals 100 mg capsu le 2024 025 [facility]acy #[id number], [address], [place], [address], 06/18/2025 12:19:45 Uniso m (doxy rebeca e) 25 mg table t 2024 025 [facility] #[id number], [address], [place], [address], 06/18/2025 12:13:07 Vitam in B-6 25 mg table t 2024 025 [facility] #[id number], [address], [place], [address], 06/18/2025 12:13:13 Prena jean claude 28 mg iron- 800 mcg table t 2024 025 [facility] #[id number], [address] [facility], [place], [address], 06/18/2025 12:12:52 nitro furan toin monoh ydrat e/mac rocry stals 100 mg capsu le 2024 025 [facility] #[id number], [address] [facility], [place], [address], 05/23/2025 05:02:50 ondan setro n 4 mg disin tegra ting table t 2024 025 [facility] #[id number], [address] [facility], [place], [address], 05/15/2025 17:14:26 metoc lopra mide 10 mg table t 2024 025 [facility] #[id number], [address] [facility], [place], [address], 06/18/2025 12:12:48 metro nidaz ole 0.75 % (37.5 mg/5 gram) vagin al gel 2024 025 [facility] #[id number], [address] [facility], [place], [address], 05/21/2025 05:01:36 Prena jean claude 28 mg iron- 800 mcg table t 2024 025 [email or web address] [facility]/Pharmacy #[id number], [address] [place], [address], 06/18/2025 12:12:49 proge stero ne micro nized 100 mg capsu le 2024 025 [facility]/Ph[facility]acy #[id number], [address] [place], [address], 04/17/2025 17:28:55 Patient TargetsNo targets recorded. Patient InstructionsNo instructions recorded. Reason for Referral [facility] for Mixed anxiety and depressive disorder Referring Physician: Felicitas Hi, HOGSHEAD LINER, Encounter Date: 03/14/2025 Results Created Date Observation Date Name Description Value Unit Range Abnormal Flag Note LastModifiedBy Organization Detail LastModifiedTime 04/19/2004/19/2025 PROT/ CREAT - U RANDO M protein, urine 14.5 mg/dL <11.9 high Not Available [address], [address], 04/19/2025 11:00:10 04/19/2004/19/2025 PROT/ CREAT - U RANDO M creatinine, urine 176 mg/dL 20 - 275 normal Not Available [address], [address], 04/19/2025 11:00:10 04/19/2004/19/2025 PROT/ CREAT - U RANDO M protein/crea tinine ratio, random urine 0.082 mg/mg _crea t 0.024 - 0.184 normal Not Available [address], [address], 04/19/2025 11:00:10 02/21/20 25 02/21/2025 HCG, TOTAL , QUANT HCG, total, quant < 2 mIU/m L < 5 Refer ence Range s are for femal es aged 18 years - Adult Nonpr egnan t or preme nopau amari <5 Postm enopa usal <10 Value s from diffe rent assay metho ds may vary. The use of this assay to monit or or to diagn ose patie nts with cance r or any other condi tion unrel ated to pregn carlos has not been valid ated by the ben actur er of this assay . Not Available [address], [address], 02/21/2025 10:39:25 02/21/20 25 02/20/2025 pregn carlos test, urine HCG negati ve Not Available [facility] [address] [place], [address], 02/20/2025 14:54:48 03/14/20 25 03/15/2025 PROGE STERO NE progesterone 4.66 NG/mL Refer ence Range s Femal es aged 18 years Adult Angeli l Menst ruati ng Femal e Folli cular phase : <0.21 -1.40 ng/mL Lutea l phase : 3.34- 25.56 ng/mL Mid lutea l phase : 4.44- 28.03 ng/mL Post- menop ausal <0.21 -0.73 ng/mL Pregn carlos Refer ence Range s First Trime ster 11.22 -90.0 0 ng/mL Secon d Trime ster 25.55 -89.4 0 ng/mL Third Trime ster 48.40 -422. 50 ng/mL Not Available [address], [address], 03/15/2025 11:20:49 03/14/20 25 03/15/2025 HCG, TOTAL , QUANT HCG, total, quant 91696 mIU/m L <5 high Refer ence Range s are for femal es aged 18 years - Adult Nonpr egnan t or preme nopau amari <5 Postm enopa usal <10 Value s from diffe rent assay metho ds may vary. The use of this assay to monit or or to diagn ose patie nts with cance r or any other condi tion unrel ated to pregn carlos has not been valid ated by the manuf actur er of this assay . Not Available [address], [address], 03/15/2025 11:51:28 03/14/20 25 03/14/2025 pregn carlos test, urine HCG positi ve Not Available [facility] [address] [place], [address], 03/14/2025 13:20:57 04/17/20 25 04/19/2025 DRUG ABUSE PANEL 7 W/CON FIRM amphetamines Negati ve negati ve normal Not Available [facility] [address] [place], [address], 04/19/2025 11:05:22 04/17/20 25 04/19/2025 DRUG ABUSE PANEL 7 W/CON FIRM barbiturates Negati ve negati ve normal Not Available [facility] [address] [place], [address], 04/19/2025 11:05:22 04/17/2004/19/2025 DRUG ABUSE PANEL 7 W/CON FIRM benzodiazepi stella Negati ve negati ve normal Not Available [facility] [address] [place], [address], 04/19/2025 11:05:22 04/17/20 25 04/19/2025 DRUG ABUSE PANEL 7 W/CON FIRM cocaine metabolites Negati ve negati ve normal Not Available [facility] [address] [place], [address], 04/19/2025 11:05:22 04/17/20 25 04/19/2025 DRUG ABUSE PANEL 7 W/CON FIRM cannabinoids Presum ptive Positi ve negati ve abnormal Not Available [facility] [address] [place], [address], 04/19/2025 11:05:22 04/17/2004/19/2025 DRUG ABUSE PANEL 7 W/CON FIRM methadone Negati ve negati ve normal Not Available [facility] [address] [place], [address], 04/19/2025 11:05:22 04/17/20 25 04/19/2025 DRUG ABUSE PANEL 7 W/CON FIRM opiates Negati ve negati ve normal Not Available [facility] [address] [place], [address], 04/19/2025 11:05:22 09/30/20 25 04/19/2025 DRUG ABUSE PANEL 7 W/CON FIRM creatinine, urine 174 mg/dL 20 - 275 normal Not Available [address], [address], 04/19/2025 11:05:22 04/17/20 25 04/19/2025 HEMOG LOBIN [...] absen ce of diabe jarvis Not Available [address], [address], 04/19/2025 11:41:20 04/17/20 25 04/19/2025 OB PANEL - STD BLOOD WORK hep BS Ag Non-Re active non-re active normal Not Available [address], [address], 04/19/2025 12:01:59 04/17/20 25 04/19/2025 OB PANEL - STD BLOOD WORK hep C Ab Non-Re active non-re active normal Not Available [address], [address], 04/19/2025 12:01:59 04/17/20 25 04/19/2025 OB PANEL - STD BLOOD WORK HIV 1/2 Ag/Ab Non-Re active non-re active normal Not Available [address], [address], 04/19/2025 12:01:59 04/17/20 25 04/19/2025 OB PANEL - STD BLOOD WORK syphilis Ab Non-Re active non-re active normal Not Available [address], [address], 04/19/2025 12:01:59 04/17/2012 0504/19/2025 OB PANEL - STD BLOOD WORK rubella Ab IgG 61.8 IU/mL normal INTER PRETI VE INFOR MATIO N: Rubel la Antib alber, IgG. < 5.0 IU/mL ..... ..... . Not consi stent with immun ity 5.0 - 9.9 IU/mL ..... . Equiv ocal: Indet ermin ate-R epeat testi ng in 10-14 days may be helpf ul. > or = 10.0 IU/mL ... Consi stent with immun ity The prese nce of Rub[place] la IgG antib alber sugge st respo nse to immun izati on or prior /curr ent expos ure to the Rubel la virus . Not Available [facility] [address] [place] [address], [address], 04/19/2025 12:01:59 04/17/20 25 04/19/2025 CBC (INCL UDES DIFF/ PLT) WBC 12.0 thous and/u L 4.0 - 9.8 high Not Available [facility] [address] [place] [address], [address], 04/19/2025 12:17:34 04/17/20 25 04/19/2025 CBC (INCL UDES DIFF/ PLT) RBC 4.7 mamadou on/uL 3.9 - 4.9 normal Not Available [facility] [address] [place] [address], [address], 04/19/2025 12:17:34 04/17/20 25 04/19/2025 CBC (INCL UDES DIFF/ PLT) hemoglobin 14.8 g/dL 11.8 - 14.8 normal Not Available [facility] [address] [place] [address], [address], 04/19/2025 12:17:34 04/17/20 25 04/19/2025 CBC (INCL UDES DIFF/ PLT) hematocrit 45.3 % 35.5 - 44.0 high Not Available [facility] [address] [place] [address], [address], 04/19/2025 12:17:34 04/17/20 25 04/19/2025 CBC (INCL UDES DIFF/ PLT) MCV 96.0 fL 82.0 - 99.0 normal Not Available [address], [address], 04/19/2025 12:17:34 04/17/20 25 04/19/2025 CBC (INCL UDES DIFF/ PLT) MCH 31.4 pg 27.2 - 32.6 normal Not Available [address], [address], 04/19/2025 12:17:34 04/17/20 25 04/19/2025 CBC (INCL UDES DIFF/ PLT) MCHC 32.7 g/dL 31.5 - 35.5 normal Not Available [address], [address], 04/19/2025 12:17:34 04/17/20 25 04/19/2025 CBC (INCL UDES DIFF/ PLT) RDW-CV 12.6 % 11.5 - 14.5 normal Not Available [address], [address], 04/19/2025 12:17:34 04/17/20 25 04/19/2025 CBC (INCL UDES DIFF/ PLT) platelet 305 thous and/u L 140 - 350 normal Not Available [address], [address], 04/19/2025 12:17:34 04/17/20 25 04/19/2025 CBC (INCL UDES DIFF/ PLT) MPV 12.5 fL 9.3 - 12.4 high Not Available [address], [address], 04/19/2025 12:17:34 04/17/20 25 04/19/2025 CBC (INCL UDES DIFF/ PLT) absolute neutrophil 8.79 thous and/u L 1.90 - 7.00 high Not Available [address], [address], 04/19/2025 12:17:34 04/17/20 25 04/19/2025 CBC (INCL UDES DIFF/ PLT) absolute lymphocyte 2.31 thous and/u L 0.70 - 4.50 normal Not Available [address], [address], 04/19/2025 12:17:34 04/17/20 25 04/19/2025 CBC (INCL UDES DIFF/ PLT) absolute monocyte 0.70 thous and/u L 0.10 - 1.30 normal Not Available [address], [address], 04/19/2025 12:17:34 04/17/20 25 04/19/2025 CBC (INCL UDES DIFF/ PLT) absolute eosinophil 0.03 thous and/u L <0.70 normal Not Available [address], [address], 04/19/2025 12:17:34 04/17/20 25 04/19/2025 CBC (INCL UDES DIFF/ PLT) absolute basophil 0.15 thous and/u L <0.20 normal Not Available [address], [address], 04/19/2025 12:17:34 04/17/20 25 04/19/2025 CBC (INCL UDES DIFF/ PLT) absolute immature granulocyte 0.02 thous and/u L <0.03 normal Not Available [address], [address], 04/19/2025 12:17:34 04/17/2004/19/2025 CT/NG chlamydia trachomatis CT neg negati ve normal This repor t is inten ded for us in clini ant monit oring and manag ement of patie nts. It is not inten ded for use in medic al-le gal appli catio n. Not Available [address], [address], 04/19/2025 19:58:29 04/17/20 25 04/19/2025 CT/NG neisseria gonorrhoeae GC neg negati ve normal This repor t is inten ded for us in clini ant monit oring and manag ement of patie nts. It is not inten ded for use in medic al-le gal appli catio n. Not Available [facility] [address] [place], [address], 04/19/2025 19:58:29 04/17/20 25 04/26/2025 VARIC ALY ZOSTE R VIRUS ANTIB ALBER (IGG) varicella zoster virus antibody (IgG) 1.17 S/co normal Signa l to Cut-o ff S/CO Inter preta tion ----- ---- ----- ----- ----- ----- -- <1.00 Negat manolo - Antib alber not detec imelda > or = 1.00 Posit manolo - Antib alber detec imelda A posit manolo resul t indic ates that the patie nt has antib alber to VZV but does not diffe renti [...] natio n-ind uced immun ity is Varic aly Zoste r Virus Antib alber Immun ity Scree n, ACIF. Not Available [facility] [address], [place], [address], 04/26/2025 11:26:03 04/17/20 25 04/26/2025 HEMOG LOBIN OPATH Y EVALU ATION red blood cell count 4.70 mamadou on/uL 3.80-5 .10 Not Available [address] [place], [address], 04/26/2025 11:26:03 04/17/20 25 04/26/2025 HEMOG LOBIN OPATH Y EVALU ATION hemoglobin 14.6 g/dL 11.7-1 5.5 Not Available [address] [place], [address], 04/26/2025 11:26:03 04/17/20 25 04/26/2025 HEMOG LOBIN OPATH Y EVALU ATION hematocrit 46.5 % 35.0-4 5.0 high Not Available [address], [address], 04/26/2025 11:26:03 04/17/20 25 04/26/2025 HEMOG LOBIN OPATH Y EVALU ATION MCV 98.9 fL 80.0-1 00.0 Not Available [address], [address], 04/26/2025 11:26:03 04/17/20 25 04/26/2025 HEMOG LOBIN OPATH Y EVALU ATION MCH 31.1 pg 27.0-3 3.0 Not Available [address], [address], 04/26/2025 11:26:03 04/17/20 25 04/26/2025 HEMOG LOBIN OPATH Y EVALU ATION RDW 13.4 % 11.0-1 5.0 Not Available [address], [address], 04/26/2025 11:26:03 04/17/20 25 04/26/2025 HEMOG LOBIN OPATH Y EVALU ATION hemoglobin A 97.4 % >96.0 Not Available [address] [address] [place], [address], 04/26/2025 11:26:03 04/17/20 25 04/26/2025 HEMOG LOBIN OPATH Y EVALU ATION hemoglobin F <1.0 % <2.0 Not Available [facility] [address] [address] [place], [address], 04/26/2025 11:26:03 04/17/20 25 04/26/2025 HEMOG LOBIN OPATH Y EVALU ATION hemoglobin A2 (quant) 2.6 % 2.0-3. 2 Not Available [address] [address] [place], [address], 04/26/2025 11:26:04/17/2004/26/2025 HEMOG LOBIN OPATH Y EVALU ATION interpretati on Angeli l pheno type. Angeli l hemog lobin distr ibuti on, no HgS, HgC or other abnor mal hemog lobin obser ny. Not Available [address] [address] [place], [address], 04/26/2025 11:26:03 04/17/20 25 04/26/2025 MEASL ES AB (IGG) , IMMUN E [...] infor garcia kumar e refer to http: //anuja Buchanania gnost [employer].c om/fa q/FAQ 162 (This link is being provi ded for infor didier nal/ educa stacy l purpo ses only. ) Not Available [address] [place], [address], 04/26/2025 11:26:04 04/17/20 25 04/26/2025 ANTIB ALBER SCREE N, RBC W/REF L ID, TITER [...] alloi mmuni zed pregn carlos. Not Available [address] [place], [address], 04/26/2025 11:26:04 04/17/2004/26/2025 ABO GROUP AND RH TYPE ABO group A Not Available [address] [place], [address], 04/26/2025 11:26:05 04/17/2004/26/2025 ABO GROUP AND RH TYPE Rh type RH(D) POSITI VE For addit ional infor garcia kumar e refer to http: //[facility] redd Bob stDia gnost ics.c om/fa q/FAQ 111 (This link is being provi ded for infor didier nal/ educa stacy l purpo ses only. ) Not Available [facility] [address] [address] [place], [address], 04/26/2025 11:26:05 04/17/2004/26/2025 CULTU RE, URINE , ROUTI NE culture, urine, routine SEE NOTE CULTU RE, URINE , ROUTI NE Micro Numbe r: [id number] Test Statu s: Final Speci men [...] Cultu re Trans port Tube. Not Available [facility] [address] [address] , [place], [address], 04/26/2025 11:26:05 04/20/2004/21/2025 COMPR EHENS MANOLO METAB OLIC PANEL sodium 139 mmol/ L 136 - 145 normal Not Available [address], [address], 04/21/2025 10:59:31 04/20/20 25 04/21/2025 COMPR EHENS MANOLO METAB OLIC PANEL potassium 3.9 mmol/ L 3.5 - 5.1 normal Not Available [address], [address], 04/21/2025 10:59:31 04/20/20 25 04/21/2025 COMPR EHENS MANOLO METAB OLIC PANEL chloride 100 mmol/ L 98 - 107 normal Not Available [address], [address], 04/21/2025 10:59:31 04/20/20 25 04/21/2025 COMPR EHENS MANOLO METAB OLIC PANEL glucose 85 mg/dL 74 - 106 normal Not Available [address], [address], 04/21/2025 10:59:31 04/20/2004/21/2025 COMPR EHENS MANOLO METAB OLIC PANEL carbon dioxide 25 mmol/ L 20 - 32 normal Not Available [address], [address], 04/21/2025 10:59:31 04/20/20 25 04/21/2025 COMPR EHENS MANOLO METAB OLIC PANEL calcium 9.1 mg/dL 8.5 - 10.1 normal Not Available [address], [address], 04/21/2025 10:59:31 04/20/2004/21/2025 COMPR EHENS MANOLO METAB OLIC PANEL creatinine 0.51 mg/dL 0.60 - 1.00 low Not Available [address], [address], 04/21/2025 10:59:31 04/20/2004/21/2025 COMPR EHENS MANOLO METAB OLIC PANEL eGFR 138 mL/mi n/1.7 3m2 >60 normal The eGFR is based on the CKD-E PI 2020 equat ion. To calcu late the new eGFR from a previ ous Creat inine or Cysta tin C resul t, go to https ://ana helms.jose ramon hidalgo/cameron espana s/simonao qi/gf r_cal culat or Not Available [address], [address], 04/21/2025 10:59:31 04/20/2004/21/2025 COMPR EHENS MANOLO METAB OLIC PANEL AST 14 U/L 15 - 37 low Not Available [address], [address], 04/21/2025 10:59:31 04/20/2004/21/2025 COMPR EHENS MANOLO METAB OLIC PANEL ALT 27 U/L 14 - 59 normal Not Available [address], [address], 04/21/2025 10:59:31 04/20/2004/21/2025 COMPR EHENS MANOLO METAB OLIC PANEL alk phos 62 U/L 46 - 116 normal Not Available [address], [address], 04/21/2025 10:59:31 10/0304/21/2025 COMPR EHENS MANOLO METAB OLIC PANEL albumin 4.0 g/dL 3.4 - 5.0 normal Not Available [address], [address], 04/21/2025 10:59:31 04/20/20 25 04/21/2025 COMPR EHENS MANOLO METAB OLIC PANEL protein, total 7.3 g/dL 6.4 - 8.2 normal Not Available [address], [address], 04/21/2025 10:59:31 04/20/20 25 04/21/2025 COMPR EHENS MANOLO METAB OLIC PANEL bilirubin, total 0.7 mg/dL 0.2 - 1.0 normal Not Available [address], [address], 04/21/2025 10:59:31 04/20/20 25 04/21/2025 COMPR EHENS MANOLO METAB OLIC PANEL urea nitrogen (BUN) 6 mg/dL 7 - 18 low Not Available [address], [address], 04/21/2025 10:59:31 05/09/2005/12/2025 CULTU RE, URINE , ROUTI NE culture, urine, routine SEE NOTE abnormal CULTU RE, URINE , ROUTI NE Micro Numbe r: [id number] Test Statu s: Final Speci men [...] See Thera py Comme nts Not Available [facility] [address] [place], [address], 05/12/2025 13:20:28 05/09/2005/11/2025 VAGIN ITIS PLUS STD PANEL bacterial vaginosis BV neg negati ve normal Not Available [address], [address], 05/12/2025 10:59:21 05/09/2005/11/2025 VAGIN ITIS PLUS STD PANEL alan species C. spp POS negati ve abnormal Not Available [facility] [address] [place] [address], [address], 05/12/2025 10:59:21 05/09/2005/11/2025 VAGIN ITIS PLUS STD PANEL alan glabrata C. gla neg negati ve normal Not Available [address], [address], 05/12/2025 10:59:21 05/09/2005/11/2025 VAGIN ITIS PLUS STD PANEL chlamydia trachomatis CT neg negati ve normal This repor t is inten ded for use in clini ant monit oring and manag ement of patie nts. It is not inten ded for use in medic al-le gal appli catio n. Not Available [facility] [address] [place], [address], 05/12/2025 10:59:21 05/09/2005/11/2025 VAGIN ITIS PLUS STD PANEL neisseria gonorrhoeae GC neg negati ve normal This repor t is inten ded for use in clini ant monit oring and manag ement of shiv salgado. It is not inten ded for use in medic al-le gal appli catio n. Not Available [facility] [address] [place], [address], 05/12/2025 10:59:21 05/09/20 25 05/11/2025 VAGIN ITIS PLUS STD PANEL trichomonas vaginalis TRICH POS negati ve abnormal Not Available [facility] [address] [place], [address], 05/12/2025 10:59:21 05/09/2005/09/2025 urina lysis , dipst ick Leukocytes Trace Not Available [facility] [address], [address], 05/09/2025 19:25:14 05/09/2005/09/2025 urina lysis , dipst ick Nitrite positi ve Not Available [facility] [address], [address], 05/09/2025 19:25:14 05/09/2005/09/2025 urina lysis , dipst ick Urobilinogen .2 Not Available [facility] [address], [address], 05/09/2025 19:25:14 05/09/2005/09/2025 urina lysis , dipst ick Protein Trace Not Available [facility] [address], [address], 05/09/2025 19:25:14 05/09/2005/09/2025 urina lysis , dipst ick pH 6.0 Not Available [facility] [address], [address], 05/09/2025 19:25:14 05/09/2005/09/2025 urina lysis , dipst ick Blood Negati ve Not Available [facility] [address], [place], [address], 05/09/2025 19:25:14 05/09/2005/09/2025 urina lysis , dipst ick Specific Rienzi 1.020 Not Available [address], [place], [address], 05/09/2025 19:25:14 05/09/2005/09/2025 urina lysis , dipst ick Ketone Large (80) Not Available [address], [place], [address], 05/09/2025 19:25:14 05/09/2005/09/2025 urina lysis , dipst ick Bilirubin Negati ve Not Available [address], [place], [address], 05/09/2025 19:25:14 05/09/2005/09/2025 urina lysis , dipst ick Glucose Negati ve Not Available [address], [address], 05/09/2025 19:25:14 05/09/2005/09/2025 urina lysis , dipst ick Appearance Turbid Not Available [facility] [address], [address], 05/09/2025 19:25:14 05/09/20 25 05/09/2025 urina lysis , dipst ick Color Dark Yellow Not Available [facility] [place] [address] [facility], [place], [address], 05/09/2025 19:25:14 05/17/20 25 05/17/2025 CHROM OSOME S 13, 18, 21 + SEX CHROM OSOME AKOSUA SIS chromosomes 13, 18, 21 + sex chromosome analysis Negati ve normal See PDF for compl ete resul ts. Overa ll Resul t: Negat manolo Negat manolo for all order ed condi tions Clini ant Notes : * The resid ual risks provi ded repre sent the remai ysabel [facility] [place] that the pregn carlos is affec imelda with the indic ated chrom osome aneup loidy in view of a negat manolo resul t. * This is a scree ysabel test; there fore, false posit manolo and false negat manolo resul ts can occur . No irrev ersib le decis ion shoul d be made based on these findi ngs alone . Clini ant corre latio n with ultra sound findi ngs and histo ry is indic ated. If defin itive diagn osis is manuel ed, chori onic villu s sampl ing or amnio cente sis is neces adis. fract ion: 9.1% - fract ion is one compo nent of the algor ithm used and is combi eligio with other quali ty metri cs to deter mine the aneup loidy scree ysabel resul t. Not Available [facility] [address], [place], [address], 05/22/2025 01:09:06 05/18/20 25 05/18/2025 ALICIA MENTA L (CF + SMA) [871] fundamental (CF + sma) [871] Negati ve normal See PDF for compl ete resul ts. Overa ll Resul t: Negat manolo No disea se-ca using mutat ions detec imelda. Not Available [facility] [address], [place], [address], 05/25/2025 14:42:51 06/18/20 25 06/19/2025 CULTU RE, URINE , ROUTI NE culture, urine, routine SEE NOTE CULTU RE, URINE , ROUTI NE Micro Numbe r: [id number] Test Statu s: Final Speci men [...] Cultu re Trans port Tube. Not Available [facility] [address] [place], [address], 06/19/2025 20:07:53 06/18/20 25 06/20/2025 VAGIN ITIS PLUS STD PANEL bacterial vaginosis BV neg negati ve normal Not Available [facility] [address] [place] [address], [address], 06/20/2025 12:41:17 06/18/20 25 06/20/2025 VAGIN ITIS PLUS STD PANEL alan species C. spp POS negati ve abnormal Not Available [facility] [address] [place] [address], [address], 06/20/2025 12:41:17 06/18/20 25 06/20/2025 VAGIN ITIS PLUS STD PANEL alan glabrata C. gla neg negati ve normal Not Available [facility] [address] [place] [address], [address], 06/20/2025 12:41:17 06/18/20 25 06/20/2025 VAGIN ITIS PLUS STD PANEL chlamydia trachomatis CT neg negati ve normal This repor t is inten ded for use in clini ant monit oring and manag ement of shiv salgado. It is not inten ded for use in medic al-le gal appli catio n. Not Available [facility], [address], 06/20/2025 12:41:17 06/18/20 25 06/20/2025 VAGIN ITIS PLUS STD PANEL neisseria gonorrhoeae GC neg negati ve normal This repor t is inten ded for use in clini ant monit oring and manag ement of shiv salgado. It is not inten ded for use in medic al-le gal appli catio n. Not Available [facility] [address] [place], [address], 06/20/2025 12:41:17 06/18/20 25 06/20/2025 VAGIN ITIS PLUS STD PANEL trichomonas vaginalis TRICH POS negati ve abnormal Not Available [facility] [address] [place], [address], 06/20/2025 12:41:17 06/18/20 25 06/18/2025 urina lysis , dipst ick Leukocytes Small Not Available [facility] [address], [address], 06/18/2025 12:12:59 06/18/20 25 06/18/2025 urina lysis , dipst ick Nitrite negati ve Not Available [facility] [address], [address], 06/18/2025 12:12:59 06/18/20 25 06/18/2025 urina lysis , dipst ick Urobilinogen .2 Not Available [facility] [address], [place], [address], 06/18/2025 12:12:59 06/18/20 25 06/18/2025 urina lysis , dipst ick Protein Trace Not Available [facility] [address], [address], 06/18/2025 12:12:59 06/18/2006/18/2025 urina lysis , dipst ick pH 6.0 Not Available [facility] [address], [place], [address], 06/18/2025 12:12:59 06/18/20 25 06/18/2025 urina lysis , dipst ick Blood Negati ve Not Available [facility] [address], [place], [address], 06/18/2025 12:12:59 06/18/2006/18/2025 urina lysis , dipst ick Specific Rienzi 1.025 Not Available [address], [place], [address], 06/18/2025 12:12:59 06/18/2006/18/2025 urina lysis , dipst ick Ketone Negati ve Not Available [facility] [address], [place], [address], 06/18/2025 12:12:59 06/18/20 25 06/18/2025 urina lysis , dipst ick Bilirubin Negati ve Not Available [facility] [address], [place], [address], 06/18/2025 12:12:59 06/18/2006/18/2025 urina lysis , dipst ick Glucose Negati ve Not Available [facility] [address], [place], [address], 06/18/2025 12:12:59 06/18/20 25 06/18/2025 urina lysis , dipst ick Appearance Cloudy Not Available [facility] [address], [place], [address], 06/18/2025 12:12:59 06/18/2006/18/2025 urina lysis , dipst ick Color Dark Yellow Not Available [facility] Roxanne [address] [facility], [place], [address], 06/18/2025 12:12:59 04/18/2004/17/2025 US, trans vagin al No observ ation record ed. [email or web address] [address] [address], [place], [address], 04/18/2025 16:04:49 05/12/2005/09/2025 , trans vagin al No observ ation record ed. [email or web address] [facility] [address], [place], [address], 05/12/2025 20:14:46 Result Notes None recorded. Problems Name Problem SNOMED Code Status Onset Date Resolution Date Notes Provider Name and Address Organization Details Recorded Time test positive 418477022 Active 2024 NINA BRITO [facility] [place], [address] , [facility] 5 14:05:27 Mixed anxiety and depressiv e disorder 924965053 Active 2024 NINA BRITO [facility] [place], [address] , [facility] 5 14:05:30 Bipolar I disorder 231517776 Active 2024 NINA BRITO [facility] [place], [address] , [facility] 5 14:06:08 Mild intermitt ent asthma 761514920 Active 2024 NINA BRITO [address] [place], [address] , [facility] 5 14:06:08 Past history of section 032609314 Active 2024 Primary C/S Manjula Enciso CNM [address] [place], [address] , [facility] 5 02:48:57 Past history of pre-eclam psia 57518054675 9100 Active 2024 Baseline preE labs normal Manjula Enciso CNM [address] [place] [address], [address] , [facility] 5 02:50:40 49995791 Active 2024 Manjula Enciso CNM [address] [place] [address], [address] , [facility] 5 02:45:34 Past history of section 114622386 Active 2024 Primary C/S Manjula Enciso CNM [address] [place] [address], [address] , [facility] 5 02:48:57 Obese class II 21408134296 4105 Active 2024 Manjula Enciso CNM [address] [place] [address], [address] , [facility] 5 02:49:11 Past history of pre-eclam psia 45236114893 9100 Active 2024 Baseline preE labs normal Manjula Enciso CNM [address] [place] [address], [address] , [facility] 5 02:50:40 Past history of premature delivery 500808778 Active 2024 34 wks Primary C/S Manjula Enciso CNM [address] [place] [address], [address] , [facility] 5 02:49:55 Problem Notes None recorded. Procedures Surgical History Date Name Laterality Status Provider Name and Address Organization Details Recorded Time section completed Yessenia Barros [facility] 03/14/2025 13:12:04 Imaging Results None recorded. Procedure Notes None recorded. Medical Equipment None Reported. Allergies Allergen ID Allergen Name Allergen Category Reaction Reaction Severity Criticality Documentation Date Start Date Code Code System Note Provider Name and Address Organization Details Recorded Time 780532 Product containin g penicilli n (product) medicatio n rash Not available low 02/20/20252015 70102 8001 SNOMED Jaycee Sprague [facility], [facility] 15:06:15 Medications Name Sig Start [...] and Address Organization Details Last Updated DateTime 03/14/2025 175.26 cm 98.8 % 40.6 kg/m2 963980. 9 g 118/86 mm[Hg] Yessenia Barros [facility] 5 13:13:52 Date Recorded Body height Body mass index (BMI) Body mass index (BMI) [Percentile] Per age and sex Body weight Systolic And Diastolic Provider Name and Address Organization Details Last Updated DateTime 04/17/2025 175.26 cm 35.9 kg/m2 97.11 % 839379. 66 g 120/60 mm[Hg] Kerry Green [facility] 5 17:24:00 Date Recorded Body height Body mass index (BMI) [Percentile] Per age and sex Body mass index (BMI) Body weight Systolic And Diastolic Provider Name and Address Organization Details Last Updated DateTime 05/09/2025 175.26 cm 96.98 % 35.7 kg/m2 769551. 64 g 120/70 mm[Hg] Tramelio Norma [facility] 19:24:08 Date Recorded Body height Body mass index (BMI) [Percentile] Per age and sex Body mass index (BMI) Body weight Systolic And Diastolic Provider Name and Address Organization Details Last Updated DateTime 175.26 cm 96.94 % 35.6 kg/m2 382047. 76 g 128/74 mm[Hg] Cata Obi powell [facility] 17:13:45 Date Recorded Body height Body mass index (BMI) [Percentile] Per age and sex Body mass index (BMI) Body weight Systolic And Diastolic Provider Name and Address Organization Details Last Updated DateTime 06/18/2025 175.26 cm 96.53 % 34.8 kg/m2 725180. 36 g 120/70 mm[Hg] Tramea Norma [facility] 12:10:22 Social History Question Answer Notes LastModified by Organizat ion Details LastModified Time Tobacco Smoking Status Never Smoker Jaycee lamas, [facility] 02/20/2025 15:09:05 If You Are , What Was Your Level Of Alcohol Consumption Prior To ? None [email or web address] Information not available 03/14/2025 Are You Blind Or Do You Have Difficulty Seeing? No Information not available 02/20/2025 Are You Deaf Or Do You Have Serious Difficulty Hearing? No [email or web address] Information not available 02/20/2025 What Type Of Diet Are You Following? REGULAR [email or web address] Information not available 03/14/2025 Which Illicit Or Recreational Drugs Have You Used? Katia hess Information not available 05/15/2025 How Many Children Do You Have? 1 [email or web address] Information not available 02/20/2025 What Is Your Relationship Status? Domestic Partner [email or web address] Information not available 02/20/2025 Are You Sexually Active? Yes [email or web address] Information not available 02/20/2025 Have You Used IV Drugs? No [email or web address] Information not available 05/15/2025 Sex: Unknown Functional Status Question Answer Note LastModified by Organizat ion Details LastModified Time Do you use any illicit or recreational drugs? Yes [email or web address] Information not available 05/15/2025 Do you or have you ever used any other forms of tobacco or nicotine? No [email or web address] Information not available 02/20/2025 What is your level of alcohol consumption? None [email or web address] Information not available 02/20/2025 Are you currently [...] ICD10 Code Diagnosis IMO Codes Diagnosis Note [id number] BARBIE RHODES[facility] [address] [place] [address] 02/20/2025 14:53:04 02/20/2025 15:34:54 Missed period 10992524 N92.6 4530001 Pt originally said LMP 12/24/2024.A fter talking with pt, she reports she had spotting for 4 days on 01/23/25. Pt reports she gets a faint line at home.Pt also states [facility] did a UPT and said it was negative. Will do Quant, if elevated will repeat in 48 hours. [id number] NINA BRITO [facility] [address] [place] [address] 03/14/2025 12:40:30 03/14/2025 15:11:25 test positive 033258132 Z32.01 667432 -LMP 12/24/2024, states she has periods every month at the same time each month.-Was seen on 02/20/2025 and blood HCG level was negative. Patient states not to long after seeing provider she had some spotting a couple days later and took a test that was positive.- Hx of C/S x1 in 2022 at 35.6 weeks due to pre-eclamp fransico. SAB x2, 1 after last , states she was told to take progestero ne once she found out she was . She would like her progestero ne level checked today.-Hx of bi-polar, depression - No meds currently. Patient states that her moods are up and down, was on Lexapro last but baby had club foot so hesitant to get on medication s with this . Denies any thoughts of self harm. -Will get patient appointmen t with An[facility] POC:HCG level today repeat on Wednesday and the following WednesdayTVUS in 2 weeks due to HCG blood level negative on 02/20/2025Rx for progestero ne nightly per patient request Mixed anxi ety and depressive disorder 850396652 F41.8 5634451 Mild inter mittent asthma 462048957 J45.20 3731087 Bipolar I disorder 92052 6008 F31.9 8922109 Per patient Past pregn carlos history of section 215425926 Z98.891 630780 Past pregn carlos history of pre-eclampsia 0687554872 12451 Z87.59 231357 [id number] Manjula Enciso CNM [facility] [place] [address] [place] [address] 04/17/2025 16:42:05 04/17/2025 19:51:20 test positive 691016128 Z32.01 345684 LMP 12/24/2024Pt was seen about 3 wks ago in the ED for pelvic & abdominal pain. IUP was identified at that time.She is here for dating US and labsEDD based on US. 10 wks - 11/10/2025N OB education reviewedSA B precaution s discussedF /u in 4 wks [id number] Manjula Enciso CNM [facility] [place] [address] [place] [address] 05/09/2025 18:59:10 05/09/2025 20:02:04 Gestation period, 13 weeks 26584320 Z3A.13 2075961 Advised pt to f/u immediatel y if temp>101.; abdominal pain, vaginal bleeding greater than 1 pad/hr for greater than 2 hours; vaginal bleeding with or without cramping; bleeding w/clots; cramping like a period. Dysuria 25566977 R30.0 81620 Pt reports dysuria, frequency. U dip positive nitrites - Rx for nitrofuran toin sent.[facility] er POC pending culture results. Acute vaginitis 74395850 N76.0 - suspected BV. - large amounts of malodorous discharge present - Metrogel rx sent - Vulvar hygiene reviewed - Additional POC pending results - Pain in female pelvis 42 3835004 O26.899 R10.20 774221 No abnormalit ies seen on US. Discussed findings w/pt.Pain most consistent with RLP and or UTI symptoms Nausea and vomiting in 5147637855 O21.9 091604 Nausea of - advised patient to keep [...] can come to clinic for IV hydration. [id number] ALVIN OLIVEIRA CNM [facility] [address] [place] [address] 05/15/2025 17:00:15 05/16/2025 13:02:28 Gestation period, 14 weeks 47255012 Z3A.14 1944578 Pt is here for a CHAD appointmen [...] consent for NIPT screening. Hyperemesi s gravidarum 77962634 O21.0 [id number] Manjula Enciso CNM [facility] [address] [place] [address] 06/18/2025 12:02:47 06/18/2025 13:39:41 Gestation period, 19 weeks 60120199 Z3A.19 7411087 Advised pt to f/u immediatel y if temp>101.; abdominal pain, vaginal bleeding greater than 1 pad/hr for greater than 2 hours; vaginal bleeding with or without cramping; bleeding w/clots; cramping like a period. Suprapubic pain 19497283 6 R10.24 6000345 History of gynecological disorder 151702175 Z86.19 8023486 Health Concerns Section Related Observation LastModified by Organization Detai ls LastModified Time None Recorded Concern Status LastModified by Organization Details LastModified Time None Recorded Advance Directives Directive None Recorded Payers Insurance Date Sequence Insurance Name Policy Number Policy Ambriz Covered Member ID Ambriz Member ID Guarantor Name 05/29/2025 3 [place] [id number] [facility] [id number] [facility] 05/16/2025 3 [place] [facility] [id number] [facility] 06/18/2025 1 [facility] [id number] Richardson Vargas [id number] [facility] 06/12/2025 2 [place] [facility] [id number] [facility] Notes Date Note Type Note Provider Name and Address Organization Details Recorded Time 5 text/html ROS as noted in the HPI Sernadiya Is a 19 year old female here for a confirmation. Her LMP was 12/24/2024. Pt stated that she had a positive urine test about 2 weeks ago right after her last appointment. FELICITAS HI, [employer] [address] [facility], [place], [address], [facility] [employer] [facility] 03/14/2025 14:07:49 5 text/html ROS as noted in the HPI Serenity is here for follow up ER visitpatient c/o being 7 weeks 2 days from the ER scanpatient c/o wanting an u/s Manjula Enciso, NATE [address] [facility], [place], [address], [facility] [employer] [facility] 04/18/2025 18:37:21 5 text/html Vaginal Infection/DischargeReport ed by PatientHPIFor [...] canROS as noted in the HPI Manjula Camille Fernie, NATE [address] [facility], [place], [address], [facility] [employer] [facility] 05/10/2025 11:55:49 5 text/html Patient is here today for a [...] prenatals sent in. No other concerns. ALVIN OLIVEIRA, BÁRBARA [address] [facility], [place], [address], [facility] [employer] [facility] 05/15/2025 17:33:35 5 text/html Patient is here today for a routine OB visit. She is currently at 19.2 weeks gestation. vitamins: yes She has felt movement. She denies any complaints of the presence of vaginal bleed, leaking fluid, abdominal cramps, nausea, vomiting, headache or visual disturbances.Patient c/o light cramping Manjula Encsio, CNM [address] [facility], [place], [address], [facility] 06/18/2025 12:27:07 OBGyn Episode Ob Episode Information Episode Created Date Number of Fetuses Patient Bloodtype Patient rh Status Prepregnancy Weight lbs Domestic Partner Domestic Partner Phone Father Name Bpm Developer Status 02/21/20 25 1 CLOSED Fetus Data First Name Last Name Admitted to NICU Weight (g) Sex Living Outcome Pediatric Complications Fetus ID Race Codes Race Delivery Type M Prematur e [id number] Primary Marcellus Calculation Initial Marcellus Date Initial Exam [...] Complications Tubal Sterilization Discharge Date Comments 3 34.6 Discharge Information Feeding Method Contraceptive Method Maternal HG B and HCT Levels Ob Episode Information Episode Created Date Number of Fetuses Patient Bloodtype Patient rh Status Prepregnancy Weight lbs Domestic Partner Domestic Partner Phone Father Name Bpm Developer Status 04/23/20 25 1 A Positive OPEN Fetus Data First Name Last Name Admitted to NICU Weight (g) Sex Living Outcome Pediatric Complications Fetus ID Race Codes Race Delivery Type [id number] Problems Problem Notes Problem Name Start Date End Date Resolution Snomed Code Not e Obese class II 04/23/2025 27001996931641 5 Past history of pre-eclampsia 04/23/2025 699226009416455 Baseline pr eE labs normal Past history of premature delivery 04/23/2025 175103190 34 wks Primary C/S Past history of section 04/23/2025 729223231 Primary C/S Marcellus Calculation Initial Marcellus Date [...] Date Ultra Sound Latest Days Gestation 0 [email or web address] 04/23/2025 11/11/19 26 0 Pre- Flowsheet Flowsheet Date 05/09/2025 Jarvis Score Blood Edema Fundus Height Fundus Units Glucose Ketones Leukocytes Nitrite Labor Signs Protein Cervic Dilation Cervic Effacement Cervic Station Type Weight in lbs Pre/Post Dialysis Refused With clothes 241.905901335759 BP Diastolic BP Location Tested BP Systolic BP Type 70 120 sitting Fetus Heart Rate Present A 151 Fetus Movement Comments UC visit - see A/P Flowsheet Date 05/15/2025 Jarvis Score Blood Edema Fundus Height Fundus Units Glucose Ketones Leukocytes Nitrite Labor Signs Protein Cervic Dilation Cervic Effacement Cervic Station none neg Type Weight in lbs Pre/Post Dialysis Refused Weight 241.930238686894 BP Diastolic BP Location Tested BP Systolic [...] in lbs Pre/Post Dialysis Refused With clothes 235.312500508346 BP Diastolic BP Location Tested BP Systolic [...]
[2025-06-24 19:20] VITALS: BP 123/62; PULSE 70; RESP 20; TEMP 36.2; O2SAT 99
--- NOTE | 2025-06-24 19:22 | ED.URI ---
HPI - URI/Sore Throat General Chief Complaint: Upper Respiratory Infection Stated Complaint: strep Time Seen by Provider: 06/24/25 19:22 Source: patient and RN notes reviewed Mode of arrival: ambulatory Limitations: no limitations History of Present Illness HPI Narrative: 15-year-old female presents with concern for sore throat and stuffy nose. She also reports headache. Reports all of her siblings have strep throat. She denies fever, body aches and chills sweats. She is 20 weeks MD elicited complaint: sore throat Related Data Home Medications ?Medication ?Instructions ?Recorded ?Confirmed ?Last Taken ?Type metronidazole 500 mg tablet mg 06/24/25 Unknown History terconazole 0.4 % vaginal cream vaginal 06/24/25 Unknown History Allergies Allergy/AdvReac Type Severity Reaction Status Date / Time Penicillins Allergy Unknown RASH Verified 06/24/25 19:20 Review of Systems Review of Systems: CONSTITUTIONAL: Denies malaise, chills, sweats, or fever. EYES: Denies visual changes, redness, or discharge. ENT: Reports rhinorrhea, congestion, sore throat. Denies sinus pain, otalgia CARDIOVASCULAR: Denies chest pain, palpitations, or edema. RESPIRATORY: Denies cough. Denies dyspnea. GASTROINTESTINAL: Denies abdominal pain, nausea, vomiting, diarrhea SKIN: Denies rash or itching. MUSCULOSKELETAL: Denies myalgia. NEUROLOGIC: Reports headache. All systems reviewed & are unremarkable except as noted in HPI and below PMFSH Past Medical History Medical History Depression High cholesterol Hypertension Pre-eclampsia during in third trimester, antepartum Suppression of menses Surgical History Surgical History H/O adenoidectomy History of tonsillectomy Hx of tympanostomy tubes Family History Family History Grandparent Malignant tumor of cervix maternal grandmother Social History Social History Smoking status: Never smoker Alcohol intake: never Substance use: current Lack of Transportation: No Lack of Food: Never True Current Housing: I Have Housing Concerned About Future Housing: No Difficulty Paying Gas/Electric Bills: No Difficulty Paying for Meds: No Currently Unemployed: YES Education: Grade School Difficulty w/ Childcare or Family Care: No Living arrangements: other Additional living arrangements comments: Grandpa Occupation/Education: student Gender identity (if verbalized by the patient): Female Sexual Orientation (if Verbalized by the Patient): Bisexual Spiritual care concerns: No Comments At time of signature, agree with nursing past medical, surgical, social and family history. There is no relevant family history pertinent to the presenting complaint Exam Narrative: GENERAL: Well-appearing, well-nourished, and in no acute distress. HEAD: Normocephalic EYES: PERRLA, conjunctivae clear ENT: Nares clear. Mucous membranes moist. TM pearly hare with dull light reflex bilaterally; no tragal tenderness. Oropharynx erythematous without lesions. Tonsils not enlarged and without exudate, no drooling, no hoarseness, no trismus, uvula midline. NECK: Supple. No lymphadenopathy CHEST: Clear to auscultation, breath sounds equal. No wheezing, rhonchi, rales, or stridor. No respiratory distress, speaks in full sentences. HEART: Regular rate and rhythm. No murmur heard. SKIN: Warm, dry, no rash. NEURO: Alert and oriented x3. PSYCH: Normal mood and affect Course Course Emergency Course: Patient is aware of diagnosis, understands and agrees to treatment plan. Anticipatory guidance given. Patient agrees to follow-up as directed and is aware of reasons to seek care at the emergency department. Portions of this record may have been created with voice recognition software Level of Care: Express Care Visit Vital Signs Vital signs: Vital Signs Temperature 97.2 F L 06/24/25 19:20 Pulse Rate 70 06/24/25 19:20 Respiratory Rate 20 06/24/25 19:20 Blood Pressure 123/62 06/24/25 19:20 Pulse Oximetry 99 06/24/25 19:20 Oxygen Delivery Room Air 06/24/25 19:20 Temperature 97.2 F L 06/24/25 19:20 Pulse Rate 70 06/24/25 19:20 Respiratory Rate 20 06/24/25 19:20 Blood Pressure 123/62 06/24/25 19:20 Pulse Oximetry 99 06/24/25 19:20 Oxygen Delivery Room Air 06/24/25 19:20 MDM Differential Diagnosis Differential Diagnosis: I evaluated this patient in the [facility]. History is obtained from patient who is an independent historian and physical exam was performed.? Available medical records were reviewed. ? Exam findings and relevant testing show no acute concerns or changes; patient is non-toxic appearing and is in no distress. ? Differential diagnosis considered: [place] virus, strep pharyngitis, allergic rhinitis, upper respiratory tract infection, sinusitis, rhinosinusitis, nasopharyngitis. viral pharyngitis, otitis media, otitis externa, pneumonia, bronchitis, viral cough syndrome, viral syndrome, and influenza. Differential diagnosis and treatment plan were discussed with the patient. Patient agrees with discussion and after shared medical decision making agrees with plan of care. All questions were answered to the patient's satisfaction. Patient is appropriate for outpatient treatment and follow-up. Discharge Plan Discharge Clinical Impression: Exposure to strep throat, Pharyngitis Patient Disposition: Home Condition: Stable Instructions: Antibiotic Form, Strep Throat (ED) Additional Instructions: -Take the medication as prescribed. Throw away the toothbrush after 24hours of antibiotic. -Eat and drink things that are easy to swallow, like tea or soup, or popsicles to suck on. -Oral rinses such as: Salt water gargles and/or may use topical anesthetic (eg. Chloraseptic spray) or lozenges to relieve dryness or throat pain). -Take Tylenol and ibuprofen as needed for pain and fever as directed. -Frequent hand washing or hand paleontological helper is one of the best ways to prevent spread of infection. -Follow up with primary care provider in 2-3 days if condition is not improving; or seek ER visit if you have trouble breathing, cannot drink enough fluids, have muffled voice, difficulty opening your mouth, or severe swelling. Patient Language: Chinese Prescriptions: New cefdinir 250 mg/5 mL suspension for reconstitution 300 mg PO Q12H 10 Days Qty: 120 0RF No Action terconazole 0.4 % cream VAGINAL metronidazole 500 mg tablet Follow-up/Referrals: UNKNOWN,DOCTOR [Primary Care Provider] Time of Disposition: 19:35
[2025-06-24 19:31] LABS: EDSTREPNEGPOS1 Negative (Negative)
== END 2025-06-24 19:39 | disposition home or self-care (01) ==
PROVIDERS: Emergency Provider Nurse Practitioner
DX: J02.9 Acute pharyngitis, unspecified (principal); Z20.818 Contact with and (suspected) exposure to other bacterial communicable diseases; I10 Essential (primary) hypertension; E78.00 Pure hypercholesterolemia, unspecified
CPT/HCPCS: 87081; 87880; 99213; G0463